=== PATIENT | female | born 1945 | race Caucasian/White ===

== ENCOUNTER 2016-12-20 05:53 | Inpatient (IN) | payer BC, OTHER ==
[2016-12-04 12:09] VITALS: BMI 43.0
--- NOTE | 2016-12-04 12:42 | PAT Medication Instructions ---
Service Date December 04, 2016. Current Home Medication List Albuterol (Proair Hfa), 2 PUFFS INH Q4H PRN for SOB/Wheezing Aspirin (Aspirin 81), 81 MG PO QAM Clobetasol Propionate (Clobetasol Propionate), 1 APPLN TOP BID PRN for PRN Fluticasone Prop/Salmeterol (Advair Diskus 500-50 Mcg/Dose), 2 PUFFS INH BID Ibuprofen (Advil), 400 MG PO PRN Losartan Potassium (Cozaar), 100 MG PO HS Zafirlukast (Zafirlukast), 20 MG PO BID Medication Instructions For Your Scheduled Surgery - Hold the following medications 24 hours prior to surgery: Clobetasol Propionate (Clobetasol Propionate), 1 APPLN TOP BID PRN for PRN Losartan Potassium (Cozaar), 100 MG PO HS - Hold the following medications the morning of surgery: Ibuprofen (Advil), 400 MG PO PRN (otherwise okay to continue per surgeon) - Take the following medications the morning of surgery with a sip of water OTHERWISE NOTHING TO EAT OR DRINK AFTER MIDNIGHT: Aspirin (Aspirin 81), 81 MG PO QAM (okay to continue per surgeon) Albuterol (Proair Hfa), 2 PUFFS INH Q4H PRN for SOB/Wheezing (use if needed; BRING TO HOSPITAL) Fluticasone Prop/Salmeterol (Advair Diskus 500-50 Mcg/Dose), 2 PUFFS INH BID Zafirlukast (Zafirlukast), 20 MG PO BID - Take the following medications as scheduled the night before surgery: Albuterol (Proair Hfa), 2 PUFFS INH Q4H PRN for SOB/Wheezing Fluticasone Prop/Salmeterol (Advair Diskus 500-50 Mcg/Dose), 2 PUFFS INH BID Zafirlukast (Zafirlukast), 20 MG PO BID Ibuprofen (Advil), 400 MG PO PRN If you have any questions please call us at [phone] or [phone] or [phone]
[2016-12-04 13:17] LABS: BASO % 0.6 %; BASO ABS # 0.04 K/uL (0-0.2); COMPLETE YES; EOS % 2.8 %; HEMATOCRIT 44.1 % (37-47); IG% 0.1 %; LYMPH % 30.4 %; LYMPH ABS # 2.09 K/uL (1.2-3.4); MEAN CELL VOLUME 91.3 fL (80-100); MEAN CORPUSCULAR HEMOGLOBIN 29.8 pg (25-34); MEAN CORPUSCULAR HGB CONC 32.7 g/dl (32-36); MEAN PLATELET VOLUME 9.7 fL (7.4-10.4); MONO % 6.6 %; NEUT % 59.5 %; PLATELET COUNT 291 K/uL (130-400); RED BLOOD COUNT 4.83 M/uL (4.2-5.4); WHITE BLOOD COUNT 6.87 K/uL (4.8-10.8)
[2016-12-04 13:24] LABS: URINE APPEARANCE CLEAR (CLEAR); URINE BILIRUBIN NEG (NEG); URINE COLOR YELLOW; URINE EPITHELIAL CELL AUTO >30 /lpf (0-5); URINE NITRITE NEG (NEG); URINE SPECIFIC GRAVITY 1.012 (1.000-1.030); UROBILINOGEN NEG (NEG)
--- NOTE | 2016-12-04 13:33 | DIAGNOSTIC IMAGING REPORT ---
TWO VIEW CHEST CLINICAL HISTORY: Preoperative examination. FINDINGS: PA and lateral chest radiographs are compared to study dated 06/20/2014. The PA view is degraded by patient rotation. The heart is top normal for projection and there is atherosclerotic calcification of the thoracic aorta. Pulmonary vasculature is noncongested. Chronic interstitial thickening and nodularity is similar to previous. Linear atelectasis is identified in the left midlung. No airspace consolidation is seen typical for pneumonia and there is no pleural effusion. There is no pneumothorax. The skeletal structures are osteopenic. Degenerative change and hyperkyphosis are seen in the thoracic spine. Fusion hardware is noted at the thoracolumbar junction. IMPRESSION: No active disease in the chest. Electronically signed by: Jose Garner M.D. 12/04/2016 1:32 PM Dictated Date/Time: 12/04/2016 1:30 PM
[2016-12-04 13:40] LABS: MANUAL MICROSCOPIC REQUIRED? NO; REVIEW REQ? NO
[2016-12-04 14:05] LABS: BUN/CREATININE RATIO 15.3 (10-20); CALCIUM 8.8 mg/dl (8.5-10.1); CREATININE 0.62 mg/dl (0.60-1.20); POTASSIUM 3.9 mmol/L (3.5-5.1)
[2016-12-20] VITALS (17 sets, daily range): BP systolic 109–138; BP diastolic 66–88; PULSE 68–88; TEMP 36.6–37; O2SAT 91–96; Ht 154.9 cm; Wt 103.1 kg
[~2016-12-20] VITALS: Ht 154.9 cm; Wt 103.1 kg
[~2016-12-20 05:53] MED LIST: ACCL20 PO; ADVIN50050 INH; ALBU1AER9 INH; ASPI-435 PO; CLBPO15 TOP; IBUP-1050 PO; LOSA100T65 PO
[2016-12-20] MEDS ORDERED: CEFAZOLIN 2000 MG/60 ML D5W 60 ML IV SCH (06:00)
[2016-12-20] MEDS ORDERED: LACTATED RINGER'S 1000ML 1,000 ML IV SCH (06:00)
[2016-12-20] MEDS ORDERED: MIDAZOLAM HCL 1 MG/ML 2ML VIAL ONE (06:36)
[2016-12-20] MEDS ORDERED: FENTANYL CITRATE INJ 50 MCG/1 ML 2 ML VIAL ONE ×5 (06:36→10:37)
[2016-12-20] MEDS ORDERED: SODIUM CHLORIDE 0.9% PF 50 ML VIAL ONE (06:54)
[2016-12-20] MEDS ORDERED: BACITRACIN 50000 UNIT VIAL ONE (06:54)
--- NOTE | 2016-12-20 07:28 | History & Physical Bridge Note ---
H&P Re-Evaluation Bridge Note: I have examined the patient, reviewed the History & Physical and in the interval since the performance of the History & Physical I have noted the following changes of clinical significance: No changes noted
--- NOTE | 2016-12-20 07:29 | History and Physical ---
History & Physical Date Dec 20, 2016. Chief Complaint neck and arm pain History of Present Illness The patient is a 71 year old female with complaints of Additional History Hepatic Disease: No Endocrine Disorder: No Kidney Disease: No Hypertension: No Heart Disease: No Bleeding Tendencies: No Infectious Diseases: No Allergies Coded Allergies: No Known Allergies (Unverified , 12/20/16) Home Medications Scheduled Aspirin (Aspirin 81), 81 MG PO QAM Fluticasone Prop/Salmeterol (Advair Diskus 500-50 Mcg/Dose), 2 PUFFS INH BID Ibuprofen (Advil), 400 MG PO PRN Losartan Potassium (Cozaar), 100 MG PO HS Zafirlukast (Zafirlukast), 20 MG PO BID Scheduled PRN Albuterol (Proair Hfa), 2 PUFFS INH Q4H PRN for SOB/Wheezing Clobetasol Propionate (Clobetasol Propionate), 1 APPLN TOP BID PRN for PRN Physical Examination Skin: warm/dry, no rash Eyes: normal inspection, EOMI, sclerae normal ENT: normal ENT inspection, pharynx normal Head: normocephalic, atraumatic Neck: supple, no adenopathy, trachea midline Respiratory/Chest: lungs clear, normal breath sounds, no respiratory distress Cardiovascular: regular rate, rhythm, no edema, no murmur Abdomen / GI: normal bowel sounds, non tender Back: normal inspection Extremities: normal inspection, normal range of motion Neurologic/Psych: no motor/sensory deficits, alert, normal reflexes, oriented x 3 Diagnosis cervical stenosis Plan of Treatment corpectomy C5 acdf C6-7
--- NOTE | 2016-12-20 07:55 | History & Physical Bridge Note ---
H&P Re-Evaluation Bridge Note: I have examined the patient, reviewed the History & Physical and in the interval since the performance of the History & Physical I have noted the following changes of clinical significance: No changes noted ACDF C3-4 corpectomy C5,6 fusion C3-7
--- NOTE | 2016-12-20 07:56 | History and Physical ---
History & Physical Date Dec 20, 2016. Chief Complaint arm and neck pain History of Present Illness The patient is a 71 year old female with complaints of Additional History Hepatic Disease: No Endocrine Disorder: No Kidney Disease: No Hypertension: No Heart Disease: No Bleeding Tendencies: No Infectious Diseases: No Allergies Coded Allergies: No Known Allergies (Unverified , 12/20/16) Home Medications Scheduled Aspirin (Aspirin 81), 81 MG PO QAM Fluticasone Prop/Salmeterol (Advair Diskus 500-50 Mcg/Dose), 2 PUFFS INH BID Ibuprofen (Advil), 400 MG PO PRN Losartan Potassium (Cozaar), 100 MG PO HS Zafirlukast (Zafirlukast), 20 MG PO BID Scheduled PRN Albuterol (Proair Hfa), 2 PUFFS INH Q4H PRN for SOB/Wheezing Clobetasol Propionate (Clobetasol Propionate), 1 APPLN TOP BID PRN for PRN Physical Examination Skin: warm/dry, no rash Eyes: normal inspection, EOMI, sclerae normal ENT: normal ENT inspection, pharynx normal Head: normocephalic, atraumatic Neck: supple, no adenopathy, trachea midline Respiratory/Chest: lungs clear, normal breath sounds, no respiratory distress Cardiovascular: regular rate, rhythm, no edema, no murmur Abdomen / GI: normal bowel sounds, non tender Back: normal inspection Extremities: normal inspection, normal range of motion Neurologic/Psych: no motor/sensory deficits, alert, normal reflexes, oriented x 3 Diagnosis cervical stenosis Plan of Treatment acdf c-4 corpectomy c5,c6 fuson c3-c7
[2016-12-20] MEDS ORDERED: EpHEDrine SULFATE INJ 50 MG/ML AMP IV PRN (08:00)
[2016-12-20] MEDS ORDERED: ATROPINE SULFATE 0.1 MG/ML 5ML SYR IV PRN (08:00)
[2016-12-20] MEDS ORDERED: ONDANSETRON INJ 2 MG/ML 2 ML VIAL IV PRN ×2 (08:00→10:45)
[2016-12-20] MEDS ORDERED: HYDROmorphone INJ 1 MG/ML SYR IV PRN (08:00)
[2016-12-20] MEDS ORDERED: PROMETHAZINE HCL INJ 6.25 MG in SODIUM CHLORIDE 0.9% 50ML 50 ML IV PRN (08:00)
[2016-12-20] MEDS ORDERED: HYDROmorphone INJ 2 MG/ML SYR/VIAL ONE ×2 (08:21→10:39)
[2016-12-20] MEDS ORDERED: ROCURONIUM BROMIDE 10 MG/ML 5 ML VIAL ONE (09:34)
[2016-12-20] MEDS ORDERED: PROPOFOL IV EMULSION 10 MG/ML 20 ML VIAL IV ONE (09:34)
[2016-12-20] MEDS ORDERED: EpHEDrine SULFATE 50MG/5ML SYR ONE (09:34)
[2016-12-20] MEDS ORDERED: HydrALAZINE HCL 20 MG/ML VIAL ONE (09:34)
[2016-12-20] MEDS ORDERED: LIDOCAINE HCL 2% 2 ML VIAL (20MG/ML) ONE (09:34)
[2016-12-20] MEDS ORDERED: DEXAMETHASONE SOD INJ 4 MG/ML VIAL ONE (09:34)
[2016-12-20] MEDS ORDERED: ONDANSETRON INJ 2 MG/ML 2 ML VIAL ONE ×2 (09:34→12:37)
[2016-12-20] MEDS ORDERED: FLOSEAL HEMOSTATIC MATRIX 5ML TOP ONE (10:29)
--- NOTE | 2016-12-20 10:34 | [facility] Operative Report ---
Operative Report Operative Date Dec 20, 2016. Pre-Operative Diagnosis cervical stenosis Post-Operative Diagnosis same Procedure(s) Performed decomp fusion Surgeon Dr. Van Ortega Information Writer Surgeon(s) Marshal Townsend PA-C Estimated Blood Loss 100ML Findings stenosis Specimens none per surgeon I attest to the content of the Intraoperative Record and any orders documented therein. Any exceptions are noted below.
[2016-12-20] MEDS ORDERED: DEXAMETHASONE INJ 8 MG in SYRINGE 0 ML IV PRN (10:45)
[2016-12-20] MEDS ORDERED: LORAZEPAM 0.5 MG TAB PO PRN (10:45)
[2016-12-20] MEDS ORDERED: NALOXONE HCL 0.4 MG/1 ML VIAL/CARP IV PRN (10:45)
[2016-12-20] MEDS ORDERED: ALBUTEROL HFA 8 GM INHALER INH PRN (10:45)
[2016-12-20] MEDS ORDERED: LORAZEPAM INJ 0.5 MG in SYRINGE 0.75 ML IV PRN (10:45)
[2016-12-20] MEDS ORDERED: DO NOT ADMINISTER FLU VACCINE PRN ×3 (10:45)
[2016-12-20] MEDS ORDERED: ACETAMINOPHEN IV 1,000 MG in EMPTY BAG 0 ML IV PRN (10:45)
[2016-12-20] MEDS ORDERED: DiphenhydrAMINE HCL 50 MG/ML VIAL IV PRN (10:45)
[2016-12-20] MEDS ORDERED: RACEPINEPHRINE 2.25% NEBU SOLN 0.5 ML VIAL INH PRN (10:45)
[2016-12-20] MEDS ORDERED: MAGNESIUM HYDROXIDE SUSP 30 ML UDC PO PRN (10:45)
[2016-12-20] MEDS ORDERED: DO NOT ADMINISTER PNEUMOCOCCAL VACCINE PRN ×2 (10:45)
--- NOTE | 2016-12-20 10:57 | DIAGNOSTIC IMAGING REPORT ---
INTRAOPERATIVE CERVICAL SPINE 4 VIEWS CLINICAL HISTORY: ACDF C4-7 COMPARISON STUDY: C5-6 corpectomy. C3-4 discectomy and fusion. FINDINGS: 412 fluoroscopic spot images are provided for interpretation. 14 fluoroscopic spot images are provided for interpretation. There are postsurgical changes of the C3-4 discectomy. There are postsurgical changes of a corpectomy at the C5 and C6 levels. There is an anterior metallic plate with screws the C3, C4, and C7 levels. IMPRESSION: Intraoperative radiographs as described above. Electronically signed by: Gigi Hui M.D. 12/20/2016 10:56 AM Dictated Date/Time: 12/20/2016 10:54 AM
[2016-12-20] MEDS ORDERED: NEOSTIGMINE METHYLSULFATE 1 MG/ML 10ML VIAL ONE ×2 (10:58→12:37)
[2016-12-20] MEDS ORDERED: ESMOLOL HCL 10 MG/ML 10 ML VIAL ONE ×2 (10:58→12:37)
[2016-12-20] MEDS ORDERED: GLYCOPYRROLATE INJ 0.2 MG/ML VIAL ONE ×2 (10:58→12:37)
[2016-12-20] MEDS ORDERED: NURSING VERBAL MED ORDER ONE ×2 (11:15→11:40)
[2016-12-20] MEDS ORDERED: IPRATROPIUM BROMIDE NEB SOLN 0.02% 2.5 ML VIAL INH SCH (11:30)
[2016-12-20] MEDS ORDERED: ALBUTEROL 0.5% NEB SOLN 2.5 MG/0.5 ML VIAL INH SCH (11:30)
[2016-12-20] MEDS: FENTANYL CITRATE INJ 50 MCG/1 ML 2 ML VIAL IV PRN ×4 (11:38→12:34)
[2016-12-20] MEDS ORDERED: ALBUTEROL 0.083% NEBU SOLN 3 ML VIAL INH ONE (12:00)
--- NOTE | 2016-12-20 12:16 | OPERATIVE REPORT ---
DATE OF OPERATION: 12/20/2016 PREOPERATIVE DIAGNOSIS: Cervical spondylosis with myeloradiculopathy. POSTOPERATIVE DIAGNOSIS: Same. PROCEDURE PERFORMED: 1. Anterior cervical corpectomy C5-C6. 2. Anterior cervical discectomy C3-C4. 3. Anterior cervical arthrodesis C3-C4 and C4-C7. 4. Placement of PEEK cage 8 mm in height at C3-C4 and 33 mm in height at C4-C7. 5. Application of Globus plate and screws from C3-C7. 6. Placement of locally harvested morcellized autograft combined with Ellie bone graft in interbody cages. SURGEON: Dr. Van Ortega. TECH WRITER: Due to the complex nature of the procedure, the entire surgery was performed with the carpenter assistant of HERNANDEZ Melgoza. The assistant infant teacher, under direct supervision, was involved in the actual performance of all aspects of the surgical procedure including hemostasis, tissue retraction and incision, instrument management, patient positioning, and wound closure. ANESTHESIA: General. DISPOSITION: The patient awakened and taken to PACU in stable condition. HISTORY OF PATIENT'S PROBLEMS: This is a 71-year-old female that presents with above-mentioned diagnosis. After failing an extensive course of nonoperative care, elected to undergo the above-mentioned procedure. Risks, benefits, pros, cons, and alternatives were outlined in detail preoperatively. PROCEDURE: The patient was met with preoperatively, case discussed and all questions were addressed. At that point the patient was taken back to operative suite and after undergoing successful general intubation by the department of anesthesia was placed in a supine position on Daryn table with head in Andrade head counselor. All bony prominences were well padded and the eyes were inspected to ensure there was no external pressure placed upon them. At this point the anterior cervical spine was prepped and draped in normal sterile fashion. At this point, an incision was placed along the right anterior aspect of the cervical spine, medial to the sternocleidomastoid muscle. Sharp dissection with the assistance of bipolar electrocautery was performed down to and exposing the anterior cervical spine from C3-C7. A self-retaining retractor was placed. I then performed a complete discectomy of C4-C5 out to the uncovertebral joints followed by C6-C7 out to the uncovertebral joints. Sunspot distracting pins were placed in C4 and C7 to distract across C5-C6. Complete corpectomy was then performed of both levels including removal of all posterior annular fibers, longitudinal ligament and bilateral foraminotomies performed. Endplates were then burred to subcortical bleeding bone and a 33 mm PEEK cage filled with Ellie bone grafting locally harvested morcellized autograft tapped into position. Distracting apparatus was removed and we proceeded to C3-C4. Again, I performed a complete discectomy out to the uncovertebral joints bilaterally, bilateral foraminotomies performed, endplates burred to subcortical bleeding bone and an 8 mm PEEK cage filled with Ellie bone grafting and allograft tapped into position. Distracting apparatus was removed. All anterior osteophytes burred to a smooth cortical surface and a Globus cervical plate applied with the assistance of fluoroscopy. Incision was then copiously irrigated, explored to ensure there was no damage to surrounding structures or remaining bleeding. A 10 round STU drain inserted then closed with 2-0 Vicryl in the fascia, 4-0 Monocryl for final skin closure. Steri-Strips and sterile dressing placed. The patient was awakened and taken to PACU in stable condition. I attest to the content of the Intraoperative Record and any orders documented therein. Any exception s are noted below.
--- NOTE | 2016-12-20 12:38 | DIAGNOSTIC IMAGING REPORT ---
CHEST ONE VIEW PORTABLE CLINICAL HISTORY: POST ACDF, WHEEZING, HYPOXIA COMPARISON STUDY: Chest radiograph December 04, 2016. FINDINGS: Anterior cervical spine fusion and lumbar spine fusion hardware is incidentally noted. There is no pneumothorax. No findings are noted to suggest pulmonary edema. Lung findings are diminished. Linear left basilar opacity suggestive atelectasis. There is moderate right basilar opacity which favors atelectasis. There may also be left lower lobe volume loss. IMPRESSION: 1. Diminished lung lungs. Bibasilar opacities with volume loss which favor atelectasis. Consolidation could appear similar. 2. No pneumothorax. Electronically signed by: Macario Deshpande M.D. 12/20/2016 12:37 PM Dictated Date/Time: 12/20/2016 12:32 PM
--- NOTE | 2016-12-20 12:51 | Anesthesiology Progress Note ---
Anesthesia Post Op Note Date & Time Dec 20, 2016 at 12:48 Vital Signs Pain Intensity: 5 Vital Signs Past 12 Hours Date Time Temp Pulse Resp B/P (MAP) Pulse Ox O2 Delivery O2 Flow Rate FiO2 12/20/16 12:35 82 19 120/57 92 Mask 8 12/20/16 12:25 85 17 111/69 92 Mask 8 12/20/16 12:15 80 14 113/61 92 Mask 8 12/20/16 12:05 72 15 108/57 94 Mask 8 12/20/16 12:04 77 15 93 Mask 9.0 12/20/16 11:55 80 22 116/59 92 Mask 8 12/20/16 11:45 74 20 120/61 92 Mask 8 12/20/16 11:35 84 22 119/57 92 Mask 10 12/20/16 11:25 86 19 129/63 92 Mask 13 12/20/16 11:24 88 28 92 Mask 12.0 12/20/16 11:15 85 17 124/56 92 Mask 13 12/20/16 11:05 84 20 117/66 90 Mask 13 12/20/16 10:58 36.2 89 16 182/100 90 Mask 13 12/20/16 06:47 37 71 18 138/78 95 Room Air Notes Mental Status: alert / awake / arousable, participated in evaluation Pt Amnestic to Procedure: Yes Nausea / Vomiting: adequately controlled Pain: adequately controlled Airway Patency, RR, SpO2: stable & adequate BP & HR: stable & adequate Hydration State: stable & adequate Anesthetic Complications: no major complications apparent Patient with expiratory weezing in recovery. Oxygen saturation 92-95% on facemask. Pain was well managed and she required 2 nebulizer treatments of albuterol which improved her subjective lung symptoms and weezing. She still had boarderline low oxygen saturation on FM and so a CXR was checked in recovery to rule out pneumothorax. Given that she appears to be improving and there is no PNX, we suspect that this is due to her existing lung disease, post operative atelectasis, and her morbid obesity. She is okay to continue her recovery on the floor with continuous pulse oxymetry.
[2016-12-20] MEDS: SODIUM CHLORIDE 0.9% 1000ML 1,000 ML IV SCH (13:30)
[2016-12-20] MEDS ORDERED: ACETAMINOPHEN IV 100 ML IV PRN (14:00)
[2016-12-20] MEDS: OXYCODONE HCL IR 5 MG TAB (IMMEDIATE RELEASE) PO PRN (14:01)
[2016-12-20] MEDS: CEFAZOLIN IV 2,000 MG in DEXTROSE 5% 50ML 50 ML IV SCH (15:52)
[2016-12-20] MEDS: HYDROmorphone INJ 0.5 MG/0.5 ML SYR IV PRN (15:52)
[2016-12-20] MEDS: SCOPOLAMINE 1.5 MG TDSY TD SCH (16:09)
[2016-12-20] MEDS: CHECK SCOPOLAMINE PATCH PLACEMENT SCH (16:10)
[2016-12-20] MEDS: HYDROmorphone INJ 1 MG/ML SYR IV PRN (19:30)
[2016-12-20] MEDS: DEXAMETHASONE INJ 6 MG in SYRINGE 0 ML IV SCH (21:48)
[2016-12-20] MEDS: FLUTICASONE/SALMETEROL (ADVAIR) 500/50 INH 14 PUFF INH SCH (21:50)
[2016-12-20] MEDS: LOSARTAN POTASSIUM 50 MG TAB PO SCH (21:51)
[2016-12-20] MEDS: DOCUSATE SODIUM 100 MG CAP PO SCH (21:51)
[2016-12-21] VITALS (23 sets, daily range): BP systolic 110–131; BP diastolic 58–78; PULSE 58–87; TEMP 36.6–37.2; O2SAT 89–97
[2016-12-21] MEDS: CHECK SCOPOLAMINE PATCH PLACEMENT SCH ×4 (00:06→23:33)
[2016-12-21] MEDS: CEFAZOLIN IV 2,000 MG in DEXTROSE 5% 50ML 50 ML IV SCH ×2 (00:06→08:03)
[2016-12-21] MEDS: SODIUM CHLORIDE 0.9% 1000ML 1,000 ML IV SCH (02:39)
[2016-12-21] MEDS: HYDROmorphone INJ 0.5 MG/0.5 ML SYR IV PRN (04:25)
[2016-12-21] MEDS: DEXAMETHASONE INJ 6 MG in SYRINGE 0 ML IV SCH ×2 (06:11→14:00)
[2016-12-21] MEDS ORDERED: NURSING VERBAL MED ORDER ONE ×2 (08:30→20:00)
[2016-12-21] MEDS: FLUTICASONE/SALMETEROL (ADVAIR) 500/50 INH 14 PUFF INH SCH ×2 (08:48→21:09)
[2016-12-21] MEDS: OXYCODONE HCL IR 5 MG TAB (IMMEDIATE RELEASE) PO PRN (08:48)
[2016-12-21] MEDS: ASPIRIN 81 MG ECTAB PO SCH (08:49)
[2016-12-21] MEDS: DOCUSATE SODIUM 100 MG CAP PO SCH ×2 (08:49→21:09)
[2016-12-21] MEDS ORDERED: COUGH DROP (SUGAR FREE) LOZ 24 LOZ/1 BOX ONE (10:46)
[2016-12-21] MEDS ORDERED: NURSING DECISION MEDICATION ORDER SCH (11:00)
--- NOTE | 2016-12-21 11:04 | PROGRESS NOTE ---
DATE: 12/21/2016 Postop day 1. She is complaining of some neck pain, sore throat, swallowing liquids well. No hoarseness. Vital signs stable. T-max 37.2. STU drained 25 mL; however, the drain did slip out this a.m. PHYSICAL EXAMINATION: She is in chair at bedside. Has excellent strength to testing. Dressing is in place. ASSESSMENT: Status post anterior decompression and fusion. PLAN: At this time, we will maintain liquid diet today. We will make her n.p.o. after midnight Friday night, plan for posterior decompression and fusion on Friday.
[2016-12-21] MEDS ORDERED: COUGH DROP (SUGAR FREE) LOZ 24 LOZ/1 BOX PO PRN (11:15)
[2016-12-21] MEDS ORDERED: DEXAMETHASONE INJ 10 MG in SYRINGE 0 ML IV SCH (20:30)
[2016-12-21] MEDS: ALBUTEROL 0.083% NEBU SOLN 3 ML VIAL INH PRN (20:45)
[2016-12-21] MEDS: LOSARTAN POTASSIUM 50 MG TAB PO SCH (21:09)
[2016-12-22] VITALS (17 sets, daily range): BP systolic 119–147; BP diastolic 62–85; PULSE 65–84; TEMP 36.6–37.1; O2SAT 91–95
[2016-12-22] MEDS ORDERED: BISACODYL 10 MG SUPP PR PRN (06:00)
[2016-12-22] MEDS ORDERED: BISACODYL 5 MG TABEC PO PRN (06:00)
[2016-12-22] MEDS: CHECK SCOPOLAMINE PATCH PLACEMENT SCH ×2 (08:00→16:00)
[2016-12-22] MEDS: ASPIRIN 81 MG ECTAB PO SCH (08:39)
[2016-12-22] MEDS: FLUTICASONE/SALMETEROL (ADVAIR) 500/50 INH 14 PUFF INH SCH ×2 (08:39→20:38)
[2016-12-22] MEDS: POLYETHYLENE (MIRALAX) 17 GM PACK PO SCH (08:39)
[2016-12-22] MEDS: DOCUSATE SODIUM 100 MG CAP PO SCH ×2 (08:39→20:38)
--- NOTE | 2016-12-22 11:00 | SURGERY PROGRESS NOTE ---
DATE: 12/22/2016 SUBJECTIVE: Ms. Fischer is here postop day #2 status post anterior cervical fracture with ACDF and fusion from C3-C7. She has had some issues with her lungs, where if she lies down in bed, she is hypoxic and wheezes. She spent the night upright in her chair. She did not get much rest, otherwise though she is doing fine. She is not having too much in the way of pain. The numbness and tingling in the arms and hands seems to be somewhat improved. She is able to move all of her extremities without difficulties and is tolerating her collar well. She is on clear liquid diet and our plan is to bring her back to surgery tomorrow for posterior cervical fusion, and decompression. She has no other complaints of numbness, tingling or paresthesias. PHYSICAL EXAMINATION: VITAL SIGNS: She is afebrile. All vital signs are stable. Neck: Collar is in place and is well-fitting. Dressing is clean, dry, and intact. Strength and sensation are grossly intact. ABDOMEN: Soft, nontender. EXTREMITIES: Calves are supple and nontender. ASSESSMENT: The patient is stable postoperative day #2. PLAN: At this point, the patient is improving. Our plan is to bring her back to the operating room tomorrow morning if her lungs are clear and can tolerate it, we will perform a right posterior cervical decompression and fusion. She has been made n.p.o. after midnight today. I will see her tomorrow for surgery.
[2016-12-22] MEDS: ALBUTEROL 0.083% NEBU SOLN 3 ML VIAL INH PRN ×2 (11:49→19:56)
--- NOTE | 2016-12-22 14:42 | Progress Note ---
Progress Note Date of Service Dec 22, 2016. Progress Note Patient is 71 year old F POD#2 from a multilevel ACDF, still having pain and now scheduled for Posterior cervical fusion C3-T2. The patient has existing COPD/Asthma, but reports her home symptoms as relatively mild. On presentation to Same Day Surgery on Friday, her O2 saturation was 95% on room air. Her operative course was uneventful but she did have some dyspnea in the recovery room and audible weezing which was treated with aggressive nebulizers and oxygen therapy and the patient did improve. A CXR was also done at that time to rule out the possibility of a PNX caused by the surgery and this showed an expected amount of atelectasis for a patient of her age, duration of surgery, and body habitus. Now 2 days post op, the patient is still more dyspneic than would be expected. She is wearing a cervical collar. She requires 4L NC to keep her oxygen saturations 92-94% and per the nurse she drops fo 84-87% off O2. On exam, she has scattered weezing, and may have some ronchi in the R base. She is afebrile. I spoke with the patient and discussed the need to rule out a developing pneumonia before attributing all of her dyspnea to the c-collar and her existing lung disease. I have ordered a CXR, CBC, and BMP. Her suitability for surgery tomorrow will depend on the outcome of these investigations. She is probably at least moderate risk for post op respiratory failure due to her current pulmonary status. The primary team may want to consider obtaining a medicine consult pre or post op to assist in management of her pulmonary status on the floor. Consent was obtained and placed in the chart.
[2016-12-22 14:48] LABS: BASO % 0.1 %; BASO ABS # 0.01 K/uL (0-0.2); EOS % 0.1 %; HEMATOCRIT 43.1 % (37-47); IG% 0.2 %; LYMPH % 21.2 %; LYMPH ABS # 2.78 K/uL (1.2-3.4); MEAN CELL VOLUME 89.8 fL (80-100); MEAN CORPUSCULAR HEMOGLOBIN 30.8 pg (25-34); MEAN PLATELET VOLUME 9.8 fL (7.4-10.4); MONO % 11.4 %; PLATELET COUNT 286 K/uL (130-400); WHITE BLOOD COUNT 13.14 K/uL (4.8-10.8)
[2016-12-22 14:52] LABS: COMPLETE YES; MEAN CORPUSCULAR HGB CONC 34.3 g/dl (32-36)
--- NOTE | 2016-12-22 14:54 | DIAGNOSTIC IMAGING REPORT ---
CHEST ONE VIEW PORTABLE HISTORY: dyspnea COMPARISON: Chest 12/20/2016. FINDINGS: Cervical spinal fusion hardware is again noted. No pneumothorax. Trace bilateral pleural effusions. Bibasilar linear densities favor subsegmental atelectasis. There is lumbar spinal fusion hardware. The heart is stable in size. Mild diffuse interstitial thickening which may be chronic. This is unchanged. IMPRESSION: 1. Improved aeration within the bibasilar linear densities suggesting resolving atelectasis. 2. Suspect trace bilateral pleural effusions. Electronically signed by: Mckinley Lopez M.D. 12/22/2016 2:53 PM Dictated Date/Time: 12/22/2016 2:52 PM
[2016-12-22 15:09] LABS: BUN/CREATININE RATIO 19.1 (10-20); CALCIUM 8.4 mg/dl (8.5-10.1); CREATININE 0.67 mg/dl (0.60-1.20); POTASSIUM 3.5 mmol/L (3.5-5.1)
[2016-12-22] MEDS: LOSARTAN POTASSIUM 50 MG TAB PO SCH (20:37)
[2016-12-23] VITALS (38 sets, daily range): BP systolic 121–162; BP diastolic 68–112; PULSE 58–92; TEMP 36.5–37; O2SAT 91–98
[2016-12-23] MEDS: CHECK SCOPOLAMINE PATCH PLACEMENT SCH ×4 (00:22→23:16)
[2016-12-23] MEDS ORDERED: FENTANYL CITRATE INJ 50 MCG/1 ML 2 ML VIAL ONE ×5 (06:33→10:42)
[2016-12-23] MEDS ORDERED: MIDAZOLAM HCL 1 MG/ML 2ML VIAL ONE (06:33)
[2016-12-23] MEDS ORDERED: ALBUT/IPRATROP 3MG/0.5MG NEB 3 ML VIAL ONE ×2 (06:47→10:51)
[2016-12-23] MEDS ORDERED: BACITRACIN 50000 UNIT VIAL ONE (06:55)
[2016-12-23] MEDS ORDERED: BUPIVACAINE/EPINEPHRINE 0.5% MPF 1:200,000 30 ML VIAL ONE (06:55)
[2016-12-23] MEDS ORDERED: SODIUM CHLORIDE 0.9% PF 50 ML VIAL ONE (06:55)
--- NOTE | 2016-12-23 07:24 | History & Physical Bridge Note ---
H&P Re-Evaluation Bridge Note: I have examined the patient, reviewed the History & Physical and in the interval since the performance of the History & Physical I have noted the following changes of clinical significance: No changes noted posterior cervical decompression fusionC3-T2
[2016-12-23] MEDS ORDERED: CEFAZOLIN IV 2,000 MG/60 ML D5W IV ONE (07:29)
--- NOTE | 2016-12-23 07:31 | Anesthesiology Progress Note ---
Anesthesia Post Op Note Date & Time Dec 23, 2016 at 07:29 Vital Signs Pain Intensity: 0.0 Vital Signs Past 12 Hours Date Time Temp Pulse Resp B/P (MAP) Pulse Ox O2 Delivery O2 Flow Rate FiO2 12/23/16 07:11 36.8 16 162/84 94 Nasal Cannula 4.0 12/23/16 06:48 36.8 73 16 162/84 (110) 94 Nasal Cannula 4.0 12/23/16 03:29 36.7 67 16 140/91 95 Nasal Cannula 4.0 Humidified Oxygen 12/23/16 03:20 58 14 94 Nasal Cannula 4.0 12/22/16 23:45 68 14 94 Nasal Cannula 4.0 12/22/16 23:25 Nasal Cannula 4.0 Humidified Oxygen 12/22/16 23:25 36.9 73 16 121/62 93 Nasal Cannula 4.0 Humidified Oxygen 12/22/16 20:38 125/75 (92) 12/22/16 20:00 Room Air 12/22/16 19:58 80 16 92 Nasal Cannula 3.5 12/22/16 19:57 80 12 92 Nasal Cannula 3.5 Notes Pt Amnestic to Procedure: Yes Airway Patency, RR, SpO2: stable & adequate BP & HR: stable & adequate Pt off floor. VSS per documentation.
[2016-12-23] MEDS ORDERED: ONDANSETRON INJ 2 MG/ML 2 ML VIAL IV PRN (07:45)
[2016-12-23] MEDS ORDERED: ALBUT/IPRATROP 3MG/0.5MG NEB 3 ML VIAL INH ONE (07:45)
[2016-12-23] MEDS ORDERED: ATROPINE SULFATE 0.1 MG/ML 5ML SYR IV PRN (07:45)
[2016-12-23] MEDS ORDERED: FENTANYL CITRATE INJ 50 MCG/1 ML 2 ML VIAL IV PRN (07:45)
[2016-12-23] MEDS ORDERED: EpHEDrine SULFATE INJ 50 MG/ML AMP IV PRN (07:45)
[2016-12-23] MEDS ORDERED: HYDROmorphone INJ 2 MG/ML SYR/VIAL ONE ×2 (08:06→10:23)
[2016-12-23] MEDS: ALBUTEROL 0.083% NEBU SOLN 3 ML VIAL INH PRN (09:03)
[2016-12-23] MEDS ORDERED: FLOSEAL HEMOSTATIC MATRIX 10ML TOP ONE (10:02)
--- NOTE | 2016-12-23 10:10 | [facility] Post Operative Brief Note ---
Immediate Operative Summary Operative Date Dec 23, 2016. Pre-Operative Diagnosis cervical stenosis Post-Operative Diagnosis cervical stenosis Procedure(s) Performed C3-T2 Posterior Cervical Fusion with Bone Morphogentic Protein Surgeon Dr. Van Ortega Gambling Supervisor Surgeon(s) Radha Tellez PA-C Estimated Blood Loss 100ML Findings stenosis Specimens none per surgeon
--- NOTE | 2016-12-23 10:50 | DIAGNOSTIC IMAGING REPORT ---
Cervical spine CERVICAL 2 OR 3 VIEWS CLINICAL HISTORY: C3-T12 POSTERIOR CERVICAL FUSION cervical fusion TECHNIQUE: Image intensifier COMPARISON STUDY: None FINDINGS: Findings consistent with utilization of the image intensifier for posterior as well as anterior cervical fusion IMPRESSION: Image intensifier usage for cervical fusion Electronically signed by: Cristopher Jackson M.D. 12/23/2016 10:48 AM Dictated Date/Time: 12/23/2016 10:48 AM
[2016-12-23] MEDS ORDERED: NURSING VERBAL MED ORDER ONE (11:30)
[2016-12-23] MEDS ORDERED: ALBUTEROL 0.083% NEBU SOLN 3 ML VIAL INH ONE (11:45)
--- NOTE | 2016-12-23 12:19 | Anesthesiology Progress Note ---
Anesthesia Post Op Note Date & Time Dec 23, 2016 at 11:43 Vital Signs Pain Intensity: 0.0 Vital Signs Past 12 Hours Date Time Temp Pulse Resp B/P (MAP) Pulse Ox O2 Delivery O2 Flow Rate FiO2 12/23/16 07:11 36.8 16 162/84 94 Nasal Cannula 4.0 12/23/16 07:10 64 16 93 Nasal Cannula 4.0 12/23/16 06:48 36.8 73 16 162/84 (110) 94 Nasal Cannula 4.0 12/23/16 03:29 36.7 67 16 140/91 95 Nasal Cannula 4.0 Humidified Oxygen 12/23/16 03:20 58 14 94 Nasal Cannula 4.0 12/22/16 23:45 68 14 94 Nasal Cannula 4.0 Notes Mental Status: alert / awake / arousable, participated in evaluation Pt Amnestic to Procedure: Yes Nausea / Vomiting: adequately controlled Pain: adequately controlled Airway Patency, RR, SpO2: stable & adequate BP & HR: stable & adequate Hydration State: stable & adequate Anesthetic Complications: no major complications apparent The patient is a 71 y/o female with a h/o COPD, +tob, HTN, DMII and morbid obesity s/p C3-T2 posterior fusion with Dr. Ortega today and POD # 3 from C3-T2 anterior fusion. Prior to the patient's anterior fusion on Friday she was saturating 95% on RA. She stated she did not require home 02. Postoperatively , she required 9-10L 02 FM to maintain her oxygen saturations 92-95%. She required an Albuterol treatment as well for wheezing. She was transferred to the floor on continuous pulse oximetry. Over the weekend her oxygenation slowly improved. She stated, however, that she was more dyspneic than she was at home. A CXR showed some atelectasis but no significant effusions or consolidation and she remained afebrile. The patient's hypoxia was felt to be due to a combination of her chronic lung disease, body habitus and post op atelectasis. She was not ambulating much while on the floor and was unable to use an incentive spirometer due the nature of her surgery. This morning, the patient's oxygen saturation had improved to 95% on 4L nc. She did have wheezing throughout her lung palma which improved with a Duoneb. Preoperatively, I discussed the patient's respiratory status with Dr. Ortega. He agreed that the patient was at increased risk for postoperative respiratory failure and may require prolonged postop roll forming machine set up mechanic ventilation. He stated, however, that the patient required the surgery to stabilize her and allow her to be more ambulatory which would improve her respiratory function. The patient was also informed of this and agreed to proceed. Intraoperatively, the patient did well. She was saturating 98% on Fi02 1.0 throughout the case. She was extubated at the end of the procedure. Initially, her oxygen saturating was ranging 88-90% on 10 L FM. She was given a Duoneb treatment prior to extubation and immediately after extubation. Her oxygen saturations slowly began to improve as she became more awake and was able to cough and take deep breaths. In recovery, she continued to have some wheezing. She did receive an albuterol nebulizer. We attempted to place her on BIPAP but she became combative when the mask was placed on her. Dr. Ortega is ok with her having BIPAP and incentive spirometry as needed. The patient will be transferred to the ICU for closer monitoring given her respiratory status as well as the nature of her procedure. She currently does not show any signs of hematoma. A full report was given to Jose Bowman who will be following the patient in the ICU. The patient was saturating 94% on 10L FM prior to transfer.
[2016-12-23] MEDS ORDERED: GLYCOPYRROLATE INJ 0.2 MG/ML VIAL ONE (12:30)
[2016-12-23] MEDS ORDERED: DEXAMETHASONE SOD INJ 4 MG/ML VIAL ONE (12:30)
[2016-12-23] MEDS ORDERED: ROCURONIUM BROMIDE 10 MG/ML 5 ML VIAL ONE (12:30)
[2016-12-23] MEDS ORDERED: PROPOFOL IV EMULSION 10 MG/ML 20 ML VIAL IV ONE (12:30)
[2016-12-23] MEDS ORDERED: ONDANSETRON INJ 2 MG/ML 2 ML VIAL ONE (12:30)
[2016-12-23] MEDS ORDERED: NEOSTIGMINE METHYLSULFATE 1 MG/ML 10ML VIAL ONE (12:30)
[2016-12-23] MEDS ORDERED: LIDOCAINE HCL 2% 2 ML VIAL (20MG/ML) ONE (12:30)
[2016-12-23] MEDS ORDERED: METOPROLOL TARTRATE 1 MG/ML VIAL ONE (12:30)
[2016-12-23] MEDS ORDERED: BENZONATATE 100MG CAP PO PRN (12:45)
--- NOTE | 2016-12-23 12:55 | Clinical Documentation Query ---
CLINICAL DOCUMENTATION QUERY Dr. MONIQUE, In your clinical opinion does this patient have: ( ) Morbid obesity with BMI of 42.9 ( ) Other explanation of clinical findings (Please Explain) ( ) Unable to determine (Please Define) ( ) Need to Discuss ( ) Not Agree BMI: A significantly high (>40) BMI will impact the severity of illness and risk of mortality of your patient. However, the physician must document a correlating diagnosis in the medical record. Please clarify and document your clinical opinion in the progress notes and discharge summary. Terms such as "probable", "suspected", "likely", "questionable", "possible", or "still to be ruled out" are acceptable. IF IN AGREEMENT, YOU MUST DOCUMENT ABOVE DIAGNOSTIC STATEMENT IN DAILY PROGRESS NOTES AND DISCHARGE SUMMARY. This document is not part of the patient's record. Thank You, Joanne Alvarez RN [phone]
[2016-12-23] MEDS: HYDROmorphone INJ 1 MG/ML SYR IV PRN ×3 (12:56→23:30)
--- NOTE | 2016-12-23 12:58 | DIAGNOSTIC IMAGING REPORT ---
CHEST ONE VIEW PORTABLE HISTORY: Hypoxia, increased cough COMPARISON: Chest 12/22/2016. FINDINGS: There is a new right lower lobe airspace opacity. There are low lung volumes. The heart is stable in size. No pneumothorax. No pleural effusions. No evidence for pulmonary edema. IMPRESSION: A new right lower lobe airspace opacity. This favors a pneumonia possibly secondary to aspiration. Electronically signed by: Mckinley Lopez M.D. 12/23/2016 12:57 PM Dictated Date/Time: 12/23/2016 12:53 PM
--- NOTE | 2016-12-23 13:19 | Clinical Documentation Query ---
CLINICAL DOCUMENTATION QUERY Dr. LOPEZ, In your clinical opinion is this patient being managed for: ( ) Acute pulmonary insufficiency ( ) Other explanation of clinical findings (Please Explain) ( ) Unable to determine (Please Define) ( ) Need to Discuss ( ) Not Agree The medical record reflects the following clinical findings, treatment, and risk factors. Clinical Indicators: 71 yo female presenting for anterior and posterior cervical fusions. Pt with hypoxia following initial anterior fusion and again following posterior fusion. Initially following extubation, pt with O2 sat of 89-90% on 10L FM. Pt continues to have some wheezing. Treatment: O2 support, duoneb treatments, attempt to place BIPAP caused combativeness, incentive spirometry, transfer to ICU, evaluation specialist consult, Risk Factors: morbid obesity, COPD, + tobacco use Please clarify and document your clinical opinion in the progress notes and discharge summary. Terms such as "probable", "suspected", "likely", "questionable", "possible", or "still to be ruled out" are acceptable. IF IN AGREEMENT, YOU MUST DOCUMENT ABOVE DIAGNOSTIC STATEMENT IN DAILY PROGRESS NOTES AND DISCHARGE SUMMARY. This document is not part of the patient's record. Thank You, Joanne Alvarez, HAILEY [phone]
--- NOTE | 2016-12-23 13:21 | Clinical Documentation Query ---
CLINICAL DOCUMENTATION QUERY Dr. RAMOS, In your clinical opinion is this patient being managed for: ( ) Acute pulmonary insufficiency (X ) Other explanation of clinical findings (Please Explain) ( ) Unable to determine (Please Define) ( ) Need to Discuss ( ) Not Agree The medical record reflects the following clinical findings, treatment, and risk factors. Clinical Indicators: 71 yo female presenting for anterior and posterior cervical fusions. Pt with hypoxia following initial anterior fusion and again following posterior fusion. Initially following extubation, pt with O2 sat of 89-90% on 10L FM. Pt continues to have some wheezing. 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 Terms such as "probable", "suspected", "likely", "questionable", "possible", or "still to be ruled out" are acceptable. IF IN AGREEMENT, YOU MUST DOCUMENT ABOVE DIAGNOSTIC STATEMENT IN DAILY PROGRESS NOTES AND DISCHARGE SUMMARY. This document is not part of the patient's record. Thank You, Joanne Alvarez, RN [phone]
--- NOTE | 2016-12-23 13:55 | OPERATIVE REPORT ---
DATE OF OPERATION: 12/23/2016 PREOPERATIVE DIAGNOSIS: Cervical spinal stenosis with myeloradiculopathy. POSTOPERATIVE DIAGNOSIS: Same. PROCEDURES PERFORMED: 1. Posterior cervical decompression C4, C5 and C6. 2. Posterior cervical spinal fusion C3-T2. 3. Placement posterior segmental instrumentation using Globus screws and rods C3-T2. 4. Placement of Infuse collagen sponge combined with Mastergraft in the posterior gutters and lateral masses at C3-T2. SURGEON: Dr. Van Ortega. OUTPATIENT PHARMACY MANAGER: Radha Tellez PA-C. Due to the complex nature of the procedure, the entire surgery was performed with the information technology assistant of [employer]NA[employer]. The assistant professor of biology, under direct supervision, was involved in the actual performance of all aspects of the surgical procedure including hemostasis, tissue retraction and incision, instrument management, patient positioning, and wound closure. ANESTHESIA: General. DISPOSITION: The patient awakened and taken to PACU in stable condition. HISTORY OF PATIENT'S PROBLEMS: This is a 71-year-old female status post anterior decompression and fusion that we are now planning the posterior component. Risks, benefits, pros, cons, and alternatives were outlined in detail. Risks and benefits were reviewed preoperatively. All questions were answered. DESCRIPTION OF PROCEDURE: At that point, the patient was taken back to the operative suite and after undergoing successful general intubation by the department of anesthesia was placed in the prone position on Daryn table with chest pad, hip bolster and a 3-prong Andrade wellhead pumper. Posterior cervicothoracic junction was then prepped and draped in normal sterile fashion. Sharp dissection with the assistance of Bovie cautery was performed down to and exposing the lamina, lateral masses, and transverse processes of C3, C4, C5, C6, C7, T1 and T2. We then removed the lamina in there entirety of C6, C5 and C4 to decompress the canal. After this was complete, lateral mass screws were placed in C3, C4, C5, C6, T1 and T2 pedicle screws bilaterally with assistance of fluoroscopy and appropriate sized suad cut, contoured and locked in position bilaterally. The lateral masses and lamina of C3, C4, C5, C6, C7, T1, T2 and T3 were then burred to subcortical bleeding bone. Infuse collagen sponge combined with Mastergraft was placed in the lateral masses along the lamina of the upper thoracic spine. A 7 flat STU drain was then inserted and incision was then closed with #1 Vicryl in the fascia, 2-0 Vicryl subcutaneously, 4-0 Monocryl for final skin closure. Steri-Strips and sterile dressing placed. The patient was awakened and taken to PACU. I attest to the content of the Intraoperative Record and any orders documented therein. Any exception s are noted below.
[2016-12-23] MEDS: DOCUSATE SODIUM 100 MG CAP PO SCH ×2 (14:23→20:06)
[2016-12-23] MEDS: ASPIRIN 81 MG ECTAB PO SCH (14:23)
[2016-12-23] MEDS: POLYETHYLENE (MIRALAX) 17 GM PACK PO SCH (14:23)
[2016-12-23] MEDS: FLUTICASONE/SALMETEROL (ADVAIR) 500/50 INH 14 PUFF INH SCH ×2 (14:24→20:05)
[2016-12-23] MEDS: SCOPOLAMINE 1.5 MG TDSY TD SCH (14:47)
[2016-12-23] MEDS ORDERED: PIPERACILL/TAZOBAC CONSULT ACTIVE PRN (16:00)
[2016-12-23] MEDS ORDERED: VANCOMYCIN CONSULT ACTIVE PRN (16:00)
[2016-12-23] MEDS ORDERED: VANCOMYCIN INJ 2,600 MG in SODIUM CHLORIDE 0.9% 500ML 500 ML IV SCH (16:15)
[2016-12-23] MEDS ORDERED: PIPERACILL/TAZOBAC IV 4.5 GM in DEXTROSE 5% 100ML IV ONE (16:15)
--- NOTE | 2016-12-23 16:15 | Critical Care Consultation ---
Critical Care Consultation Date of Consultation: Dec 23, 2016. Attending Physician: Van Ortega D.O. Reason for Consultation: acute hypoxic resp fail History of Present Illness This is a 71 yo f with a h/o COPD/ Asthma and HTN that is presenting to us after having difficulty with oxygenation post operatively today. The patient had planned to undergo surgery for spinal stenosis in the cervical region. The surgery was planned to be completed on two separate days. The original anterior cervical fusion was completed on Dec 202016. She tolerated the procedure well however on POD2 was suffering from some mild hypoxia and dyspnea with laying down. The anesthesiologist was concerned for a developing pna so CXR and labs were ordered and were WNL aside from a mildly elevated WBC. The posterior fusion of the cervical spine was completed today and during extubation she required a duoneb treatment for wheezing and continued to only oxygenate to 88- 90% on 10 L of oxygen. As the patient is at high risk for respiratory failure it was decided she would be sent to ICU for further care. During the interview the patient is sitting upright in the bed. She is c/o of back pain in the cervical region however it is "only a mild ache". Denies any cough or SOB however does have O2 per NC currently. She denies any N&V. She has a history of COPD and HTN. When asked about the DMII she says she is only "borderline" and not currently on any medications. Past Medical/Surgical History HTN Lumbar Fusion Borderline DMII HTN Family History No significant family history Social History Smoking Status: Current Every Day Smoker Smokeless Tobacco Use: No Alcohol Use: none Drug Use: none Marital Status: Housing Status: lives with family Occupation Status: retired Allergies Coded Allergies: No Known Allergies (Unverified , 12/20/16) Home Medications Scheduled Aspirin (Aspirin 81), 81 MG PO QAM Fluticasone Prop/Salmeterol (Advair Diskus 500-50 Mcg/Dose), 2 PUFFS INH BID Ibuprofen (Advil), 400 MG PO PRN Losartan Potassium (Cozaar), 100 MG PO HS Zafirlukast (Zafirlukast), 20 MG PO BID Scheduled PRN Albuterol (Proair Hfa), 2 PUFFS INH Q4H PRN for SOB/Wheezing Clobetasol Propionate (Clobetasol Propionate), 1 APPLN TOP BID PRN for PRN Current Inpatient Medications Current Inpatient Medications Medications (Trade) Dose Ordered Sig/Ratna Route Start Time Stop Time Status Last Admin Dose Admin Racepinephrine (Raccemic Epinephrine 2.25% 0.5ML Neb) 0.5 ml ONE PRN INH 12/20/16 10:45 Hydromorphone HCl (Dilaudid Inj) 0.5 mg Q3H PRN IV 12/20/16 10:45 01/03/17 10:44 12/21/16 04:25 0.5 MG Magnesium Hydroxide (Milk Of Magnesia Susp) 30 ml DAILY PRN PO 12/20/16 10:45 01/19/17 10:44 Docusate Sodium (coLACE CAP) 100 mg BID PO 12/20/16 21:00 01/19/17 20:59 12/23/16 14:23 100 MG Ondansetron HCl (Zofran Inj) 4 mg Q6 PRN IV 12/20/16 10:45 01/19/17 10:44 Scopolamine (Transderm-Scop Patch) 1.5 mg Q72H TD 12/20/16 15:00 01/19/17 14:59 12/23/16 14:47 1.5 MG Lorazepam (Ativan Tab) 0.5 mg Q8H PRN PO 12/20/16 10:45 01/19/17 10:44 Lorazepam 0.5 mg/ Syringe 1 ml @ 1 mls/min Q8H PRN IV 12/20/16 10:45 01/19/17 10:44 Diphenhydramine HCl (Benadryl Inj) 25 mg Q6H PRN IV 12/20/16 10:45 01/19/17 10:44 Pneumococcal Polysaccharide Vaccine 1 ea PRN PRN N/A 12/20/16 10:45 01/19/17 10:44 Influenza Virus Vacc Triv Types A&B 1 ea PRN PRN N/A 12/20/16 10:45 01/19/17 10:44 Oxycodone HCl (Roxicodone Immediate Rel Tab) 5mg for pain scale 4-6 1... Q4H PRN PO 12/20/16 10:45 01/03/17 10:44 12/21/16 08:48 10 MG Polyethylene (Miralax Powder Packet) 17 gm DAILY PO 12/22/16 09:00 01/21/17 08:59 12/23/16 14:23 17 GM Bisacodyl (Dulcolax Tab) 5 mg DAILY PRN PO 12/22/16 06:00 01/21/17 05:59 Bisacodyl (Dulcolax Supp) 10 mg DAILY PRN HI 12/22/16 06:00 01/21/17 05:59 Dexamethasone Sodium Phosphate 8 mg/Syringe 2 ml @ 1 mls/min ONE PRN IV 12/20/16 10:45 Naloxone HCl (Narcan Inj) 0.1 mg Q5M PRN IV 12/20/16 10:45 01/19/17 10:44 Miscellaneous (Remove Transderm-Scop Patch) 1 ea Q72H N/A 12/23/16 10:45 01/22/17 10:44 12/23/16 12:30 1 EA Miscellaneous Information (Check Scopolamine Patch Placement) 1 ea QS N/A 12/20/16 16:00 01/19/17 15:59 12/23/16 00:22 1 EA Aspirin (Ecotrin Tab) 81 mg QAM PO 12/21/16 09:00 01/20/17 08:59 12/23/16 14:23 81 MG Losartan Potassium (coZAAR TAB) 100 mg HS PO 12/20/16 21:00 01/19/17 20:59 12/22/16 20:37 100 MG Hydromorphone HCl (Dilaudid Inj) 1 mg Q3H PRN IV 12/20/16 14:00 01/03/17 13:59 12/23/16 12:56 1 MG Acetaminophen 100 ml @ 400 mls/hr Q8H PRN IV 12/20/16 14:00 01/19/17 13:59 12/21/16 19:28 400 MLS/HR Albuterol Sulfate (Ventolin 0.083% 2.5MG/3ML Neb) 2.5 mg Q4R PRN INH 12/21/16 08:45 01/20/17 08:44 12/23/16 09:03 2.5 MG Salmeterol Xinafoate/ Fluticasone (Advair Diskus 500/50 Inh) 2 puff BID INH 12/21/16 21:00 01/19/17 20:59 12/23/16 14:24 2 PUFF Menthol (Nice Bob) 1 bob PRN PRN PO 12/21/16 11:15 01/20/17 11:14 12/23/16 14:51 1 BOB Benzonatate (Tessalon Perles Cap) 100 mg TID PRN PO 12/23/16 12:45 01/22/17 12:44 12/23/16 14:47 100 MG Piperacillin Sod/ Tazobactam Sod 3.375 gm/Dextrose 115 ml @ 200 mls/hr Q6 IV 12/23/16 18:00 12/30/16 17:59 UNV Vancomycin HCl 1000 mg/Sodium Chloride 270 ml @ 125 mls/hr Q12 IV 12/23/16 21:00 12/30/16 20:59 UNV Review of Systems Constitutional: No fever Eyes: No worsening of vision ENT: No hearing loss Respiratory: + wheezing, + shortness of breath, + dyspnea on exertion, + dyspnea at rest, No cough, No sputum Cardiovascular: No chest pain Abdomen: No pain, No nausea, No vomiting, No diarrhea, No constipation Musculoskeletal: No joint pain, No muscle pain Genitourinary - Female: No dysuria Neurologic: + weakness, No numbness/tingling, No balance problems Psychiatric: No depression symptoms Endocrine: + fatigue Integumentary: No rash Physical Exam Date Time Temp Pulse Resp B/P (MAP) Pulse Ox O2 Delivery O2 Flow Rate FiO2 12/23/16 15:00 92 14 144/80 (101) 97 2.0 12/23/16 15:00 71 15 97 12/23/16 14:33 69 14 151/82 (105) 97 12/23/16 14:30 82 16 96 12/23/16 14:02 73 12 138/81 (100) 97 12/23/16 14:00 69 11 98 12/23/16 13:41 68 14 95 Nasal Cannula 5.0 12/23/16 13:31 74 10 137/80 (99) 97 12/23/16 13:30 76 18 121/76 (91) 96 12/23/16 13:30 73 13 96 12/23/16 13:20 71 10 142/89 (106) 96 12/23/16 13:20 68 16 142/89 (106) 96 Mask 10.0 12/23/16 13:16 69 12 130/112 (118) 97 12/23/16 13:15 67 16 134/79 (97) 96 Mask 10.0 12/23/16 13:02 70 13 121/68 (85) 12/23/16 13:00 70 121/76 (91) 96 12/23/16 13:00 70 13 97 12/23/16 12:46 68 17 132/76 (94) 96 12/23/16 12:33 70 21 132/77 (95) 93 12/23/16 12:30 36.5 67 16 142/89 (106) 95 Mask 10.0 12/23/16 12:30 36.5 88 135/85 (102) 93 12/23/16 12:30 75 15 93 12/23/16 12:27 36.5 87 18 133/85 (101) 93 12/23/16 12:15 73 15 146/76 94 Mask 10 12/23/16 12:00 36.5 69 18 129/59 93 Mask 8 12/23/16 11:50 72 16 150/79 94 Mask 8 12/23/16 11:45 77 16 95 Mask 9.0 12/23/16 11:40 67 24 134/81 95 Mask 10 12/23/16 11:30 63 17 141/91 93 Mask 10 12/23/16 11:20 63 13 144/66 93 Mask 10 12/23/16 11:10 61 15 116/96 93 Mask 13 12/23/16 11:02 36.0 66 16 162/83 90 Mask 13 12/23/16 10:50 92 12/23/16 07:11 36.8 16 162/84 94 Nasal Cannula 4.0 12/23/16 07:10 64 16 93 Nasal Cannula 4.0 12/23/16 06:48 36.8 73 16 162/84 (110) 94 Nasal Cannula 4.0 12/23/16 03:29 36.7 67 16 140/91 95 Nasal Cannula 4.0 Humidified Oxygen 12/23/16 03:20 58 14 94 Nasal Cannula 4.0 12/22/16 23:45 68 14 94 Nasal Cannula 4.0 12/22/16 23:25 Nasal Cannula 4.0 Humidified Oxygen 12/22/16 23:25 36.9 73 16 121/62 93 Nasal Cannula 4.0 Humidified Oxygen 12/22/16 20:38 125/75 (92) 12/22/16 20:00 Room Air 12/22/16 19:58 80 16 92 Nasal Cannula 3.5 12/22/16 19:57 80 12 92 Nasal Cannula 3.5 12/22/16 19:04 36.9 65 18 125/74 12/22/16 15:58 68 12 91 Nasal Cannula 3.5 General Appearance: well-appearing, obese, other (cervical collar in place) Head: normocephalic Eyes: PERRLA, EOMI ENT: normal ear exam Neck: other (cervical collar) Respiratory: other (decreased to rR>L no wheezing noted, good air movement otherwise) Cardiovasular: regular rate/rhythm, no murmur Abdomen: non tender, normal bowel sounds, other (difficult to assess organomegaly because of obesity) Back: normal inspection, other (dressing noted on upper back) Neuro: alert, oriented x 3 Laboratory Results Last 24 Hours Test 12/23/16 07:26 12/23/16 11:09 Bedside Glucose 75 mg/dl 115 mg/dl Diagnostic Results CHEST ONE VIEW PORTABLE HISTORY: Hypoxia, increased cough COMPARISON: Chest 12/22/2016. FINDINGS: There is a new right lower lobe airspace opacity. There are low lung volumes. The heart is stable in size. No pneumothorax. No pleural effusions. No evidence for pulmonary edema. IMPRESSION: A new right lower lobe airspace opacity. This favors a pneumonia possibly secondary to aspiration. Assessment & Plan 1. Acute hypoxic Resp failure secondary to COPD exacerbation vs PNA 2. POD 3 anterior cervical fusion POD 0 Posterior cervical fusion 3. COPD/Asthma 4. HTN 5. Borderline DM NVS - oriented x 3, monitor for delirium - tylenol, dilaudid and roxicodone for pain control per primary team CVS - continue to monitor - continue losartan RESP - O2 per nursing protocol - goal > 94% O2 sat - Duoneb - continue advair bid GI - Docusate for bowel regimen - clear liquid diet - Continue to monitor I&O ID - zosyn and vanco for potential aspiration pna - continue to follow WBC ENDO - BSG AC HS HEME - follow hgn and S&S of acute blood loss DVT Prophylaxis SCD Resident Physician Supervision Note: Dr. Guerrero was resident physician during care of patient. I separately evaluated patient and did history and exam. I discussed the case with the resident and generally agree with the findings and plan. Patient likely has COPD, reactive airway disease, significant smoking history however no formal diagnosis. Brought to the ICU for observation as well as concerns for cervical swelling and respiratory compromise. Documented By: Eduardo Trujillo DO
--- NOTE | 2016-12-23 16:25 | Pharmacy Progress Note ---
Pharmacy Abx Initial Consult Date of Service Dec 23, 2016. Pharmacy Dosing Scope Date of Consult: 12/23/16 Consultation requested by: Pharmacy is consulted to initiate Vancomycin and Zosyn dosing therapy, order appropriate labs and adjust drug dose/frequency. Subjective The patient is a 71 year old female admitted on Dec 20, 2016 at 07:[address] with [address] Today Dr. Ortega took her to the OR for spinal fusion. Medicine was consulted and a chest xray revealed possible aspiration pneumonia. Pharmacy was consulted for Zosyn and Vancomycin dosing per auto consult policy. Objective Height (Feet): 5 Height (Inches): 1.00 Weight (Kilograms): 103.100 Vital Signs (Past 12Hrs) Vital Signs Past 12 Hours Date Time Temp Pulse Resp B/P (MAP) Pulse Ox O2 Delivery O2 Flow Rate FiO2 12/23/16 15:00 92 14 144/80 (101) 97 2.0 12/23/16 15:00 71 15 97 12/23/16 14:33 69 14 151/82 (105) 97 12/23/16 14:30 82 16 96 12/23/16 14:02 73 12 138/81 (100) 97 12/23/16 14:00 69 11 98 12/23/16 13:41 68 14 95 Nasal Cannula 5.0 12/23/16 13:31 74 10 137/80 (99) 97 12/23/16 13:30 76 18 121/76 (91) 96 12/23/16 13:30 73 13 96 12/23/16 13:20 71 10 142/89 (106) 96 12/23/16 13:20 68 16 142/89 (106) 96 Mask 10.0 12/23/16 13:16 69 12 130/112 (118) 97 12/23/16 13:15 67 16 134/79 (97) 96 Mask 10.0 12/23/16 13:02 70 13 121/68 (85) 12/23/16 13:00 70 121/76 (91) 96 12/23/16 13:00 70 13 97 12/23/16 12:46 68 17 132/76 (94) 96 12/23/16 12:33 70 21 132/77 (95) 93 12/23/16 12:30 36.5 67 16 142/89 (106) 95 Mask 10.0 12/23/16 12:30 36.5 88 135/85 (102) 93 12/23/16 12:30 75 15 93 12/23/16 12:27 36.5 87 18 133/85 (101) 93 12/23/16 12:15 73 15 146/76 94 Mask 10 12/23/16 12:00 36.5 69 18 129/59 93 Mask 8 12/23/16 11:50 72 16 150/79 94 Mask 8 12/23/16 11:45 77 16 95 Mask 9.0 12/23/16 11:40 67 24 134/81 95 Mask 10 12/23/16 11:30 63 17 141/91 93 Mask 10 12/23/16 11:20 63 13 144/66 93 Mask 10 12/23/16 11:10 61 15 116/96 93 Mask 13 12/23/16 11:02 36.0 66 16 162/83 90 Mask 13 12/23/16 10:50 92 12/23/16 07:11 36.8 16 162/84 94 Nasal Cannula 4.0 12/23/16 07:10 64 16 93 Nasal Cannula 4.0 12/23/16 06:48 36.8 73 16 162/84 (110) 94 Nasal Cannula 4.0 Lab Results (24Hrs) Laboratory Tests (24 Hours) Test 12/23/16 16:10 Micro Results MRSA swab ordered Assessment & Plan Assessment 71 year old female post spinal fusion today that upon post surgery chest xray was shown to have possible aspiration pneumonia. Plan Vancomycin and Zosyn for treatment of HCAP (possibly aspiration) Vancomycin IV * Loading dose: 2600 mg (25mg/kg) * Maintenance dose: 1250 mg IV (12 mg/kg) every 12 hours * Goal trough level for PNX : 15-20 mcg/mL * Trough level ordered prior to 0600 dose on 12/25/16. * A less than traditional dose has been selected due to likelihood of drug accumulation in obese patient. I estimated her half life at around 9 hours, she will surely be prone to accumulation. Will check trough somewhat early based on dosing times prior to 0600 dose on 12/25/16 as noted Piperacillin/tazobactam * 4.5 g bolus administered over 30 minutes, then 4.5 g IV extended infusion every 8 hours for CrCl greater than 20 mL/min * Aggressive dosing selected due to BMI > 35 Pharmacy will continue to follow and will adjust dose/frequency as necessary. Thank you.
[2016-12-23 17:19] LABS: COMPLETE YES; HEMATOCRIT 42.5 % (37-47); IG% 0.2 %; LYMPH % 6.5 %; LYMPH ABS # 0.83 K/uL (1.2-3.4); MEAN CELL VOLUME 91.4 fL (80-100); MEAN CORPUSCULAR HEMOGLOBIN 30.5 pg (25-34); MEAN CORPUSCULAR HGB CONC 33.4 g/dl (32-36); MEAN PLATELET VOLUME 9.6 fL (7.4-10.4); MONO % 5.8 %; NEUT % 87.5 %; PLATELET COUNT 311 K/uL (130-400); RED BLOOD COUNT 4.65 M/uL (4.2-5.4); WHITE BLOOD COUNT 12.83 K/uL (4.8-10.8)
[2016-12-23] MEDS: SODIUM CHLORIDE 0.9% 1000ML 1,000 ML IV SCH (18:00)
[2016-12-23 18:15] LABS: ALB/GLOB RATIO 0.9 (0.9-2); BUN/CREATININE RATIO 21.2 (10-20); CALCIUM 8.6 mg/dl (8.5-10.1); CREATININE 0.61 mg/dl (0.60-1.20); POTASSIUM 4.1 mmol/L (3.5-5.1)
--- NOTE | 2016-12-23 18:40 | DIAGNOSTIC IMAGING REPORT ---
ULTRASOUND VENOUS DOPPLER LWR EXT BILA CLINICAL HISTORY: Hypoxia. Possible pulmonary embolism with DVT. COMPARISON STUDY: No previous studies for comparison. FINDINGS: Real-time and color flow Doppler imaging were performed. Flow was seen within the femoral, popliteal and calf veins with no intraluminal thrombus demonstrated. The saphenous vein is patent. IMPRESSION: No evidence of lower extremity DVT. Electronically signed by: Gigi Hui M.D. 12/23/2016 6:39 PM Dictated Date/Time: 12/23/2016 6:38 PM
[2016-12-23] MEDS: ALBUT/IPRATROP 3MG/0.5MG NEB 3 ML VIAL INH SCH ×2 (19:14→23:23)
[2016-12-23] MEDS: LOSARTAN POTASSIUM 50 MG TAB PO SCH (20:06)
[2016-12-23] MEDS: HYDROmorphone INJ 0.5 MG/0.5 ML SYR IV PRN (21:16)
[2016-12-23] MEDS: PIPERACILL/TAZOBAC IV 4.5 GM in DEXTROSE 5% 100ML 100 ML IV SCH (22:40)
[2016-12-24] VITALS (20 sets, daily range): BP systolic 108–162; BP diastolic 61–90; PULSE 72–88; TEMP 36.7–37.3; O2SAT 92–97
[2016-12-24] MEDS: ALBUT/IPRATROP 3MG/0.5MG NEB 3 ML VIAL INH SCH ×5 (03:31→20:17)
[2016-12-24] MEDS: HYDROmorphone INJ 1 MG/ML SYR IV PRN ×5 (04:03→23:55)
[2016-12-24] MEDS ORDERED: VANCOMYCIN INJ 1,250 MG in SODIUM CHLORIDE 0.9% 250ML 250 ML IV SCH (06:00)
[2016-12-24 06:06] LABS: BASO % 0.1 %; BASO ABS # 0.01 K/uL (0-0.2); COMPLETE YES; EOS % 0.7 %; HEMATOCRIT 39.9 % (37-47); IG% 0.3 %; LYMPH % 17.1 %; LYMPH ABS # 1.96 K/uL (1.2-3.4); MEAN CELL VOLUME 91.5 fL (80-100); MEAN CORPUSCULAR HGB CONC 33.8 g/dl (32-36); MEAN PLATELET VOLUME 9.6 fL (7.4-10.4); MONO % 10.4 %; NEUT % 71.4 %; PLATELET COUNT 284 K/uL (130-400); RED BLOOD COUNT 4.36 M/uL (4.2-5.4); WHITE BLOOD COUNT 11.49 K/uL (4.8-10.8)
[2016-12-24] MEDS: PIPERACILL/TAZOBAC IV 4.5 GM in DEXTROSE 5% 100ML 100 ML IV SCH (06:11)
[2016-12-24 06:56] LABS: BUN/CREATININE RATIO 17.1 (10-20); CREATININE 0.54 mg/dl (0.60-1.20); PHOSPHORUS 2.5 mg/dl (2.5-4.9); POTASSIUM 3.4 mmol/L (3.5-5.1)
--- NOTE | 2016-12-24 07:09 | DIAGNOSTIC IMAGING REPORT ---
CHEST ONE VIEW PORTABLE CLINICAL HISTORY: pnea pneumonia COMPARISON STUDY: 12/23/2016 FINDINGS: Improved findings of pulmonary vascular congestion. Slight decrease in cardiac size. Moderate decrease in prominence of pulmonary vasculature. Persistent atelectasis right base IMPRESSION: Moderately improved exam. Persistent atelectatic change right base. Electronically signed by: Cristopher Jackson M.D. 12/24/2016 7:08 AM Dictated Date/Time: 12/24/2016 7:07 AM
[2016-12-24] MEDS: CHECK SCOPOLAMINE PATCH PLACEMENT SCH (07:17)
--- NOTE | 2016-12-24 07:58 | Anesthesiology Progress Note ---
Anesthesia Post Op Note Date & Time Dec 24, 2016 at 07:55 Vital Signs Vital Signs Past 12 Hours Date Time Temp Pulse Resp B/P (MAP) Pulse Ox O2 Delivery O2 Flow Rate FiO2 12/24/16 07:12 88 16 96 Nasal Cannula 2.0 12/24/16 07:11 88 18 96 Nasal Cannula 2.0 12/24/16 06:00 83 14 94 Nasal Cannula 2.0 12/24/16 04:00 36.8 82 16 122/61 96 Nasal Cannula 2.0 12/24/16 04:00 36.8 82 16 122/61 (81) 96 Nasal Cannula 2.0 12/24/16 04:00 Nasal Cannula 2.0 12/24/16 03:31 81 18 95 Nasal Cannula 2.0 12/24/16 03:31 81 18 95 Nasal Cannula 2.0 12/24/16 02:00 79 14 144/84 (104) 95 Nasal Cannula 2.0 12/24/16 00:01 36.9 85 14 140/72 (94) 94 Nasal Cannula 2.0 12/23/16 23:59 Nasal Cannula 2.0 12/23/16 23:59 36.9 85 14 140/72 94 Nasal Cannula 2.0 12/23/16 23:24 86 18 94 Nasal Cannula 2.0 12/23/16 23:23 86 18 94 Nasal Cannula 2.0 12/23/16 22:00 86 12 155/75 (101) 96 Nasal Cannula 2.0 12/23/16 20:00 37.0 79 14 149/81 94 Nasal Cannula 2.0 12/23/16 20:00 Nasal Cannula 2.0 12/23/16 20:00 37.0 79 14 149/81 (103) 94 Nasal Cannula 2.0 Notes Mental Status: alert / awake / arousable, participated in evaluation Pt Amnestic to Procedure: Yes Nausea / Vomiting: adequately controlled Pain: improving with treatment Airway Patency, RR, SpO2: stable & adequate BP & HR: stable & adequate Hydration State: stable & adequate Anesthetic Complications: no major complications apparent
[2016-12-24] MEDS: DOCUSATE SODIUM 100 MG CAP PO SCH ×2 (08:00→20:54)
[2016-12-24] MEDS: ASPIRIN 81 MG ECTAB PO SCH (08:00)
[2016-12-24] MEDS: FLUTICASONE/SALMETEROL (ADVAIR) 500/50 INH 14 PUFF INH SCH ×2 (08:00→20:17)
[2016-12-24] MEDS: POLYETHYLENE (MIRALAX) 17 GM PACK PO SCH (08:01)
[2016-12-24] MEDS: SODIUM CHLORIDE 0.9% 1000ML 1,000 ML IV SCH ×2 (08:03→20:16)
--- NOTE | 2016-12-24 09:29 | PROGRESS NOTE ---
DATE: 12/24/2016 SUBJECTIVE: Postop day #1 status post posterior cervical decompression and fusion. Complaining of posterior cervicalgia consistent with the procedure. Arm symptoms improving. Vital signs stable. T-max 36.9. STU drained 130 mL. Hematocrit this a.m. is 39.9. OBJECTIVE: On exam, she is in chair at bedside. Has good strength to testing. Is alert and oriented, swallowing reasonably well. ASSESSMENT: Status post anterior, posterior cervical decompression and fusion. PLAN: At this time, in light of her status, we will transfer her to the [facility] floor. We will initiate physical therapy, occupational therapy today. She may remove the brace when out of bed, should only be necessary when she is up and ambulatory with therapy.
--- NOTE | 2016-12-24 10:21 | Critical Care Progress Note ---
Critical Care Progress Note Date of Service Dec 24, 2016. ICU Day ICU Day Number: [address] Trujillo Subjective Patient was up in chair sleeping last night. Pain is well controlled on current regimen. Ongoing oxygen requirement however no SOB. She does not a loose cough however non productive. Objective General: not in acute distress, sitting up in chair and neck brace in place, obese Skin: no rashes noted, no suspicious lesions, no areas of inflammations/ lacerations/ erythema noted CVS: S1/ S2 noted, RRR, no rubs/ murmurs noted, no cyanosis RVS: not in acute respiratory distress, no wheezing/ rales/ crackles noted, decreased to the right base Neck: inspection WNL, dressings noted and dry on ant and post neck ABD: BSx4, no pain/ tenderness on palpation, no organomegaly palpable however difficult to appropriately asses because of obesity and sitting up in chair MSK: inspection of all limbs WNL, motor and sensation intact in all limbs, no swelling/ pain on palpation of joints NVS: PERRL, EOMI, affect appropriate, Ox3 Current SOFA Score SOFA Score Response (Comments) Value Platelets (x10) > 150 0 Bilirubin (mg/dL) < 1.2 0 Blaise Coma Score 15 0 Level of Hypotension No Hypotension 0 Creatinine (mg/dL) < 1.2 0 Total 0 Assessment & Plan 1. Acute hypoxic Resp failure secondary to COPD exacerbation vs PNA 2. POD 4 anterior cervical fusion POD 1 Posterior cervical fusion 3. COPD/Asthma 4. HTN 5. Borderline DM 6. Hypokalemia NVS - oriented x 3, monitor for delirium - tylenol, dilaudid and roxicodone for pain control per primary team CVS - continue to monitor - continue losartan RESP - O2 per nursing protocol - goal > 94% O2 sat - Duoneb - continue advair bid GI - Docusate for bowel regimen - clear liquid diet - advance per primary team - Continue to monitor I&O ID - zosyn and vanco for potential aspiration pna - deescalated to Augmentin - recommend a 10 day course of Augmentin - recommend a follow up with PCP in 7 days for repeat CXR and reassessment of hypoxia - continue to follow WBC- has been improving ENDO - BSG AC HS FEN - slightly hypokalemic at 3.4 - replete and recheck in am HEME - follow hgb and S&S of acute blood loss DVT Prophylaxis SCD Patient is appropriate for downgrade Resident Physician Supervision Note: Dr. Guerrero was resident physician during care of patient. I separately evaluated patient and did history and exam. I discussed the case with the resident and generally agree with the findings and plan. Documented By: Eduardo Trujillo DO Consults & Procedures Consultants: Dr Ortega- surgeon- primary Procedures: Ant/ Post spinal cervical fusion Data Medications: Current Inpatient Medications Medications (Trade) Dose Ordered Sig/Ratna Route Start Time Stop Time Status Last Admin Dose Admin Racepinephrine (Raccemic Epinephrine 2.25% 0.5ML Neb) 0.5 ml ONE PRN INH 12/20/16 10:45 Hydromorphone HCl (Dilaudid Inj) 0.5 mg Q3H PRN IV 12/20/16 10:45 01/03/17 10:44 12/23/16 21:16 0.5 MG Magnesium Hydroxide (Milk Of Magnesia Susp) 30 ml DAILY PRN PO 12/20/16 10:45 01/19/17 10:44 Docusate Sodium (coLACE CAP) 100 mg BID PO 12/20/16 21:00 01/19/17 20:59 12/24/16 08:00 100 MG Ondansetron HCl (Zofran Inj) 4 mg Q6 PRN IV 12/20/16 10:45 01/19/17 10:44 Lorazepam (Ativan Tab) 0.5 mg Q8H PRN PO 12/20/16 10:45 01/19/17 10:44 Lorazepam 0.5 mg/ Syringe 1 ml @ 1 mls/min Q8H PRN IV 12/20/16 10:45 01/19/17 10:44 Diphenhydramine HCl (Benadryl Inj) 25 mg Q6H PRN IV 12/20/16 10:45 01/19/17 10:44 Pneumococcal Polysaccharide Vaccine 1 ea PRN PRN N/A 12/20/16 10:45 01/19/17 10:44 Influenza Virus Vacc Triv Types A&B 1 ea PRN PRN N/A 12/20/16 10:45 01/19/17 10:44 Oxycodone HCl (Roxicodone Immediate Rel Tab) 5mg for pain scale 4-6 1... Q4H PRN PO 12/20/16 10:45 01/03/17 10:44 12/21/16 08:48 10 MG Polyethylene (Miralax Powder Packet) 17 gm DAILY PO 12/22/16 09:00 01/21/17 08:59 12/24/16 08:01 17 GM Bisacodyl (Dulcolax Tab) 5 mg DAILY PRN PO 12/22/16 06:00 01/21/17 05:59 Bisacodyl (Dulcolax Supp) 10 mg DAILY PRN IN 12/22/16 06:00 01/21/17 05:59 Dexamethasone Sodium Phosphate 8 mg/Syringe 2 ml @ 1 mls/min ONE PRN IV 12/20/16 10:45 Naloxone HCl (Narcan Inj) 0.1 mg Q5M PRN IV 12/20/16 10:45 01/19/17 10:44 Aspirin (Ecotrin Tab) 81 mg QAM PO 12/21/16 09:00 01/20/17 08:59 12/24/16 08:00 81 MG Losartan Potassium (coZAAR TAB) 100 mg HS PO 12/20/16 21:00 01/19/17 20:59 12/23/16 20:06 100 MG Hydromorphone HCl (Dilaudid Inj) 1 mg Q3H PRN IV 12/20/16 14:00 01/03/17 13:59 12/24/16 07:19 1 MG Acetaminophen 100 ml @ 400 mls/hr Q8H PRN IV 12/20/16 14:00 01/19/17 13:59 12/21/16 19:28 400 MLS/HR Albuterol Sulfate (Ventolin 0.083% 2.5MG/3ML Neb) 2.5 mg Q4R PRN INH 12/21/16 08:45 01/20/17 08:44 12/23/16 09:03 2.5 MG Salmeterol Xinafoate/ Fluticasone (Advair Diskus 500/50 Inh) 2 puff BID INH 12/21/16 21:00 01/19/17 20:59 12/24/16 08:00 2 PUFF Menthol (Nice Bob) 1 bob PRN PRN PO 12/21/16 11:15 01/20/17 11:14 12/23/16 14:51 1 BOB Benzonatate (Tessalon Perles Cap) 100 mg TID PRN PO 12/23/16 12:45 01/22/17 12:44 12/23/16 14:47 100 MG Albuterol/ Ipratropium (Duoneb) 3 ml Q4R INH 12/23/16 20:00 01/22/17 19:59 12/24/16 07:11 3 ML Sodium Chloride 1,000 ml @ 75 mls/hr [id number] IV 12/23/16 18:00 01/22/17 17:59 12/24/16 08:03 75 MLS/HR Amoxicillin/ Clavulanate Potassium (Augmentin Tab) 875 mg BIDM PO 12/24/16 16:30 12/31/16 16:29 Vital Signs: Date Time Temp Pulse Resp B/P (MAP) Pulse Ox O2 Delivery O2 Flow Rate FiO2 12/24/16 09:27 94 Nasal Cannula 2.0 12/24/16 09:10 36.8 79 16 120/76 (91) 94 Nasal Cannula 2.0 12/24/16 09:05 36.7 80 16 94 2.0 12/24/16 08:00 36.7 80 16 108/75 (86) 94 2.0 12/24/16 08:00 Nasal Cannula 2.0 94 12/24/16 07:12 88 16 96 Nasal Cannula 2.0 12/24/16 07:11 88 18 96 Nasal Cannula 2.0 12/24/16 06:00 83 14 94 Nasal Cannula 2.0 12/24/16 04:00 36.8 82 16 122/61 96 Nasal Cannula 2.0 12/24/16 04:00 36.8 82 16 122/61 (81) 96 Nasal Cannula 2.0 12/24/16 04:00 Nasal Cannula 2.0 12/24/16 03:31 81 18 95 Nasal Cannula 2.0 12/24/16 03:31 81 18 95 Nasal Cannula 2.0 12/24/16 02:00 79 14 144/84 (104) 95 Nasal Cannula 2.0 12/24/16 00:01 36.9 85 14 140/72 (94) 94 Nasal Cannula 2.0 12/23/16 23:59 Nasal Cannula 2.0 12/23/16 23:59 36.9 85 14 140/72 94 Nasal Cannula 2.0 12/23/16 23:24 86 18 94 Nasal Cannula 2.0 12/23/16 23:23 86 18 94 Nasal Cannula 2.0 12/23/16 22:00 86 12 155/75 (101) 96 Nasal Cannula 2.0 12/23/16 20:00 37.0 79 14 149/81 94 Nasal Cannula 2.0 12/23/16 20:00 Nasal Cannula 2.0 12/23/16 20:00 37.0 79 14 149/81 (103) 94 Nasal Cannula 2.0 12/23/16 19:16 88 16 94 Nasal Cannula 2.0 12/23/16 19:15 88 16 94 Nasal Cannula 2.0 12/23/16 18:22 74 15 156/80 (105) 96 2.0 12/23/16 18:00 75 20 156/80 (105) 94 Room Air 2.0 12/23/16 17:45 78 14 93 Nasal Cannula 2.0 12/23/16 17:00 76 15 133/68 (89) 94 2.0 12/23/16 17:00 36.7 75 18 133/68 (89) 94 Room Air 2.0 12/23/16 16:00 Nasal Cannula 3.0 96 12/23/16 16:00 36.7 73 16 137/71 (93) 96 Room Air 2.0 12/23/16 16:00 36.7 73 15 137/71 (93) 96 2.0 12/23/16 15:30 82 21 91 12/23/16 15:02 79 13 151/73 (99) 96 12/23/16 15:00 71 15 97 12/23/16 15:00 92 14 144/80 (101) 97 2.0 12/23/16 15:00 71 15 97 12/23/16 14:33 69 14 151/82 (105) 97 12/23/16 14:33 69 14 151/82 (105) 97 12/23/16 14:30 82 16 96 12/23/16 14:30 82 16 96 12/23/16 14:02 73 12 138/81 (100) 97 12/23/16 14:02 73 12 138/81 (100) 97 6/19/17 14:00 69 11 98 12/23/16 14:00 69 11 98 12/23/16 13:41 68 14 95 Nasal Cannula 5.0 12/23/16 13:31 74 10 137/80 (99) 97 12/23/16 13:31 10 137/80 (99) 97 12/23/16 13:30 13 96 12/23/16 13:30 76 18 121/76 (91) 96 12/23/16 13:30 73 13 96 12/23/16 13:20 71 10 142/89 (106) 96 12/23/16 13:20 68 16 142/89 (106) 96 Mask 10.0 12/23/16 13:20 10 142/89 (106) 96 12/23/16 13:16 12 130/112 (118) 97 12/23/16 13:16 69 12 130/112 (118) 97 12/23/16 13:15 67 16 134/79 (97) 96 Mask 10.0 12/23/16 13:02 13 121/68 (85) 12/23/16 13:02 70 13 121/68 (85) 12/23/16 13:00 70 121/76 (91) 96 12/23/16 13:00 70 13 97 12/23/16 13:00 13 97 12/23/16 12:46 68 17 132/76 (94) 96 12/23/16 12:33 70 21 132/77 (95) 93 12/23/16 12:30 36.5 67 16 142/89 (106) 95 Mask 10.0 12/23/16 12:30 36.5 88 135/85 (102) 93 12/23/16 12:30 75 15 93 12/23/16 12:27 36.5 87 18 133/85 (101) 93 12/23/16 12:15 73 15 146/76 94 Mask 10 12/23/16 12:00 36.5 69 18 129/59 93 Mask 8 12/23/16 11:50 72 16 150/79 94 Mask 8 12/23/16 11:45 77 16 95 Mask 9.0 12/23/16 11:40 67 24 134/81 95 Mask 10 12/23/16 11:30 63 17 141/91 93 Mask 10 12/23/16 11:20 63 13 144/66 93 Mask 10 12/23/16 11:10 61 15 116/96 93 Mask 13 12/23/16 11:02 36.0 66 16 162/83 90 Mask 13 12/23/16 10:50 92 Laboratory Results: Last 24 Hours Test 12/23/16 11:09 12/23/16 15:47 12/23/16 17:05 12/23/16 20:33 Bedside Glucose 115 mg/dl 114 mg/dl 123 mg/dl White Blood Count 12.83 K/uL Red Blood Count 4.65 M/uL Hemoglobin 14.2 g/dL Hematocrit 42.5 % Mean Corpuscular Volume 91.4 fL Mean Corpuscular Hemoglobin 30.5 pg Mean Corpuscular Hemoglobin Concent 33.4 g/dl Platelet Count 311 K/uL Mean Platelet Volume 9.6 fL Neutrophils (%) (Auto) 87.5 % Lymphocytes (%) (Auto) 6.5 % Monocytes (%) (Auto) 5.8 % Eosinophils (%) (Auto) 0.0 % Basophils (%) (Auto) 0.0 % Neutrophils # (Auto) 11.22 K/uL Lymphocytes # (Auto) 0.83 K/uL Monocytes # (Auto) 0.75 K/uL Eosinophils # (Auto) 0.00 K/uL Basophils # (Auto) 0.00 K/uL RDW Standard Deviation 45.8 fL RDW Coefficient of Variation 13.8 % Immature Granulocyte % (Auto) 0.2 % Immature Granulocyte # (Auto) 0.03 K/uL Sodium Level 143 mmol/L Potassium Level 4.1 mmol/L Chloride Level 108 mmol/L Carbon Dioxide Level 28 mmol/L Anion Gap 7.0 mmol/L Blood Urea Nitrogen 13 mg/dl Creatinine 0.61 mg/dl Est Creatinine Clear Calc Drug Dose 94.7 ml/min Estimated GFR () 106.5 Estimated GFR (Non- 91.9 BUN/Creatinine Ratio 21.2 Random Glucose 119 mg/dl Calcium Level 8.6 mg/dl Total Bilirubin 1.0 mg/dl Aspartate Amino Transf (AST/SGOT) 36 U/L Alanine Aminotransferase (ALT/SGPT) 50 U/L Alkaline Phosphatase 76 U/L Total Protein 6.7 gm/dl Albumin 3.2 gm/dl Globulin 3.5 gm/dl Albumin/Globulin Ratio 0.9 Test 12/24/16 05:37 12/24/16 05:40 Bedside Glucose 114 mg/dl White Blood Count 11.49 K/uL Red Blood Count 4.36 M/uL Hemoglobin 13.5 g/dL Hematocrit 39.9 % Mean Corpuscular Volume 91.5 fL Mean Corpuscular Hemoglobin 31.0 pg Mean Corpuscular Hemoglobin Concent 33.8 g/dl Platelet Count 284 K/uL Mean Platelet Volume 9.6 fL Neutrophils (%) (Auto) 71.4 % Lymphocytes (%) (Auto) 17.1 % Monocytes (%) (Auto) 10.4 % Eosinophils (%) (Auto) 0.7 % Basophils (%) (Auto) 0.1 % Neutrophils # (Auto) 8.22 K/uL Lymphocytes # (Auto) 1.96 K/uL Monocytes # (Auto) 1.19 K/uL Eosinophils # (Auto) 0.08 K/uL Basophils # (Auto) 0.01 K/uL RDW Standard Deviation 45.8 fL RDW Coefficient of Variation 13.6 % Immature Granulocyte % (Auto) 0.3 % Immature Granulocyte # (Auto) 0.03 K/uL Sodium Level 142 mmol/L Potassium Level 3.4 mmol/L Chloride Level 107 mmol/L Carbon Dioxide Level 25 mmol/L Anion Gap 10.0 mmol/L Blood Urea Nitrogen 9 mg/dl Creatinine 0.54 mg/dl Est Creatinine Clear Calc Drug Dose 107.0 ml/min Estimated GFR () 110.8 Estimated GFR (Non- 95.6 BUN/Creatinine Ratio 17.1 Random Glucose 113 mg/dl Calcium Level 8.0 mg/dl Phosphorus Level 2.5 mg/dl Magnesium Level 2.0 mg/dl
[2016-12-24] MEDS: OXYCODONE HCL IR 5 MG TAB (IMMEDIATE RELEASE) PO PRN (10:44)
[2016-12-24] MEDS ORDERED: POTASSIUM CHLORIDE 20 MEQ TABCR PO ONE (11:00)
--- NOTE | 2016-12-24 16:25 | Anesthesiology Progress Note ---
Anesthesia Progress Note Date of Service Dec 24, 2016. Progress Notes The patient is a 71 y/o female with a h/o COPD, +tob, HTN, DMII and morbid obesity POD 4 anterior cervical fusion POD 1 Posterior cervical fusion. The patient was admitted to the ICU postoperatively yesterday for respiratory failure secondary to COPD exacerbation vs aspiration pneumonia. She had experienced respiratory failure after her posterior fusion on Friday as well and required oxygen over the weekend to maintain her sats. Her oxygen requirement improved overnight and she is currently saturating 97% on 2lnc. When I went to see the patient today she was resting comfortably in a chair and was receiving a nebulizer treatment. She stated that she felt her breathing was comfortably and denied any dyspnea.
[2016-12-24] MEDS: AMOXICILLIN/CLAVULANATE TAB 875 MG TAB PO SCH (17:48)
[2016-12-24] MEDS: LOSARTAN POTASSIUM 50 MG TAB PO SCH (20:54)
[2016-12-25] VITALS (13 sets, daily range): BP systolic 130–145; BP diastolic 78–86; PULSE 80–99; TEMP 36.8–37.2; O2SAT 95–97
[2016-12-25] MEDS: ALBUT/IPRATROP 3MG/0.5MG NEB 3 ML VIAL INH SCH ×7 (04:00→23:45)
[2016-12-25] MEDS ORDERED: VANCOMYCIN TROUGH SCH (05:30)
[2016-12-25] MEDS: HYDROmorphone INJ 0.5 MG/0.5 ML SYR IV PRN (05:57)
[2016-12-25 06:29] LABS: CREATININE 0.49 mg/dl (0.60-1.20)
[2016-12-25] MEDS: FLUTICASONE/SALMETEROL (ADVAIR) 500/50 INH 14 PUFF INH SCH ×2 (08:40→21:09)
[2016-12-25] MEDS: AMOXICILLIN/CLAVULANATE TAB 875 MG TAB PO SCH ×2 (08:40→17:49)
[2016-12-25] MEDS: DOCUSATE SODIUM 100 MG CAP PO SCH ×2 (08:41→21:09)
[2016-12-25] MEDS: POLYETHYLENE (MIRALAX) 17 GM PACK PO SCH (09:30)
[2016-12-25] MEDS: ASPIRIN 81 MG ECTAB PO SCH (09:30)
[2016-12-25] MEDS: SODIUM CHLORIDE 0.9% 1000ML 1,000 ML IV SCH (09:30)
[2016-12-25] MEDS: OXYCODONE HCL IR 5 MG TAB (IMMEDIATE RELEASE) PO PRN ×3 (09:30→21:09)
[2016-12-25] MEDS ORDERED: RXC5 PO (10:11)
--- NOTE | 2016-12-25 10:11 | Discharge Instructions ---
Discharge Instructions Date of Service Dec 25, 2016. Admission Reason for Admission: Spinal Stenosis Discharge Discharge Diagnosis / Problem: stenosis Discharge Goals Goal(s): Improve function Activity Recommendations Activity Limitations: per Instructions/Follow-up section . Instructions / Follow-Up Instructions / Follow-Up ACTIVITY RECOMMENDATIONS: SELF CARE INSTRUCTIONS AFTER CERVICAL FUSIONS 1. No smoking. Smoking drastically decreases the chance of a solid fusion. 2. No bending, lifting more than 5 pounds, or twisting (roll like a log when turning in bed). 3. You may shower 3 days after surgery. Thoroughly dry wound. Do not soak in the tub. 4. Cervical collar: Must be worn at all times including sleeping. You may remove the brace only to bath, eat and if you are sitting in a recliner. 5. Please walk as much as you can for exercise. Gradually increase the distance that you walk as your endurance increases. SPECIAL CARE INSTRUCTIONS: VERY IMPORTANT TO READ AND REVIEW A. Do not take any anti-inflammatory medications (i.e. Indocin, Advil, Aspirin, Naprosyn, Aleve, Motrin, etc.) as these may inhibit the chance of a solid fusion. Tylenol is okay to take. B. Your surgical incision has been closed with a cosmetic suture under the skin that will dissolve in about 6 weeks. In 14 days, you can use a pair of clean scissors and cut the suture that is left outside of the skin at the ends of your incision. C. Complications are uncommon, but please contact us if you have any signs or symptoms of: 1. wound infection (fever higher than 102.5 degrees F, redness, separation of wound, drainage, or increasing pain from the incision) 2. blood clots in legs (pain, swelling, redness and warmth in legs) 3. urinary tract infection (fever higher than 102.5 degrees, burning upon urination or increased frequency of urination) 4. nerve problems (inability to walk on your toes or heels, numbness, loss of bowel or bladder control) 5. any other symptoms that concern you. D. Please call the office at if you have any concerns or questions about your operation or recovery. MANAGING PAIN AFTER SPINAL SURGERY 1. Narcotic medication is intended for short-term use and will be provided for surgical pain. Surgical pain usually lasts for a period of 4-6 weeks. Narcotic medication includes Percocet, Vicodin, Darvocet, Tylenol #3 or Lortab. 2. Longer-term pain is more appropriately treated with non-narcotic medication such as Tylenol ES. 3. Muscle spasm is not appropriately treated with narcotics. Muscle relaxers such as Soma, Flexeril or Skelaxin can be used along with Tylenol ES. 4. Remember that we all live with some "aches and pains". This is not unusual or uncommon after an injury or as we get older. 5. We will provide appropriate medication within the normal guidelines of their prescribed use. We will also be very cautious and aware of potential abuse and extended duration of patients' medication needs. 6. Please allow 2-3 days to process refills. Prescriptions will not be mailed but must be picked up at the office. FOLLOW UP VISIT: Keep your scheduled follow-up appointment. Any questions, please call the office at . Current Hospital Diet Patient's current hospital diet: Full Liquid Diet, Diabetes Type 2 Diet Discharge Diet Recommended Diet: Regular Diet Procedures Procedures Performed: C3-T2 Posterior Cervical Fusion with Bone Morphogentic Protein Pending Studies Studies pending at discharge: no Medical Emergencies . Who to Call and When: Medical Emergencies: If at any time you feel your situation is an emergency, please call 911 immediately. . Non-Emergent Contact Non-Emergency issues call your: Primary Care Provider . "Provider Documentation" section prepared by Van Ortega. . VTE Core Measure Inpt VTE Proph given/why not?: Melvina Forrest, [facility]
[2016-12-25] MEDS: HYDROmorphone INJ 1 MG/ML SYR IV PRN (10:43)
--- NOTE | 2016-12-25 15:29 | PROGRESS NOTE ---
DATE: 12/25/2016 Postop day #2. Overall, she is making steady gains. Neck pain still significant. Vital signs stable. T-max 36.8. STU drained ____ mL today. Hematocrit stable at 39.9 on exam. She is in chair at bedside, has good strength to testing. Appears comfortable. ASSESSMENT: Status post anterior, posterior cervical discectomy and fusion. PLAN: At this time, we are planning for discharge home tomorrow with home health. She understands and agrees.
[2016-12-25] MEDS: LOSARTAN POTASSIUM 50 MG TAB PO SCH (21:09)
[2016-12-26] VITALS (8 sets, daily range): BP systolic 129; BP diastolic 78; PULSE 85–96; TEMP 37.1; O2SAT 91–98
[2016-12-26] MEDS: SODIUM CHLORIDE 0.9% 1000ML 1,000 ML IV SCH ×2 (00:32→12:40)
[2016-12-26] MEDS: ALBUT/IPRATROP 3MG/0.5MG NEB 3 ML VIAL INH SCH ×3 (01:59→11:44)
[2016-12-26 07:02] LABS: CREATININE 0.41 mg/dl (0.60-1.20)
[2016-12-26] MEDS: OXYCODONE HCL IR 5 MG TAB (IMMEDIATE RELEASE) PO PRN ×2 (08:05→13:02)
[2016-12-26] MEDS: DOCUSATE SODIUM 100 MG CAP PO SCH (08:06)
[2016-12-26] MEDS: FLUTICASONE/SALMETEROL (ADVAIR) 500/50 INH 14 PUFF INH SCH (08:06)
[2016-12-26] MEDS: ASPIRIN 81 MG ECTAB PO SCH (08:06)
[2016-12-26] MEDS: AMOXICILLIN/CLAVULANATE TAB 875 MG TAB PO SCH (08:06)
[2016-12-26] MEDS: POLYETHYLENE (MIRALAX) 17 GM PACK PO SCH (09:00)
--- NOTE | 2016-12-27 01:16 | DISCHARGE SUMMARY ---
PRINCIPAL DIAGNOSIS: Cervical spinal stenosis with myeloradiculopathy. HOSPITAL COURSE FOLLOWS: On 12/20, the patient underwent anterior cervical corpectomy and fusion and tolerated this well and taken to orthopedic floor postoperatively. She did well postoperatively for 2 days and on 12/23, underwent posterior cervical decompression and fusion, tolerated this well and taken to the ICU overnight, tolerated this well, improved appropriately, returned to the orthopedic floor, tolerated therapy nicely, STU drain decreased appropriately. Subsequently on December 26, she was discharged home. Discharge orders and instructions found on the chart for further review.
--- NOTE | 2017-01-06 10:11 | Discharge Summary ---
Orthopedic Discharge Summary Admission Date/Reason Dec 20, 2016 at 07:30 Spinal Stenosis. Discharge Date/Disposition Dec 26, 2016 Home with services (home health) Diagnosis Principal Diagnosis: cervical spinal stenosis Procedure(s) Performed anterio cervical fusion posterior cervical fusion Medication Reconciliation New Medications: Oxycodone HCl (Oxycodone HCl) 5 Mg Tab 5-10 MG PO Q4H PRN for moderate-severe pain for 30 Days, #60 TAB Continued Medications: Albuterol (Proair Hfa) Aers 2 PUFFS INH Q4H PRN for SOB/Wheezing Aspirin (Aspirin 81) 81 Mg Tab 81 MG PO QAM Clobetasol Propionate (Clobetasol Propionate) 45 Appln/15 Gm Oint 1 APPLN TOP BID PRN for PRN for 30 Days, #60 GM 2 Refills Fluticasone Prop/Salmeterol (Advair Diskus 500-50 Mcg/Dose) 14 Puff/1 Inhaler Aerp 2 PUFFS INH BID Losartan Potassium (Cozaar) 100 Mg Tab 100 MG PO HS, TAB Zafirlukast (Zafirlukast) 20 Mg Tab 20 MG PO BID Discontinued Medications: Ibuprofen (Advil) 200 Mg Tab 400 MG PO PRN, TAB Admission Physical Exam As per Admitting History & Physical. Discharge Instructions Please refer to the electronic Patient Visit Report (Discharge Instructions) for additional information.
== END 2016-12-26 14:01 | disposition home health service (06) | DRG 453 ==
LOC: C.ACU 05:53 → C.3E 07:30 → ENRESERV 12:48 → C.MSICU 12-23 12:29 → ENRESERV 12-24 08:24 → C.3E 12-24 09:16
PROVIDERS: ADMIT Orthopaedic Surgery Orthopaedic Surgery of the Spine; ATTEND Orthopaedic Surgery Orthopaedic Surgery of the Spine
PROC: 0RG20A0 Fusion of 2 or more Cervical Vertebral Joints with Interbody Fusion Device, Anterior Approach, Anterior Column, Open Approach (ICD-10-PCS; principal; 2016-12-20 07:45)
PROC: 0RT30ZZ Resection of Cervical Vertebral Disc, Open Approach (ICD-10-PCS; principal; 2016-12-20 07:45)
PROC: 3E0V0GB Introduction of Recombinant Bone Morphogenetic Protein into Bones, Open Approach (ICD-10-PCS; 2016-12-23)
PROC: [UNRECOGNIZED PROCEDURE] (2016-12-23)
DX: M48.02 Spinal stenosis, cervical region (principal); J96.01 Acute respiratory failure with hypoxia; J44.1 Chronic obstructive pulmonary disease with (acute) exacerbation; Z68.41 Body mass index [BMI] 40.0-44.9, adult; E66.9 Obesity, unspecified; M47.22 Other spondylosis with radiculopathy, cervical region; R73.03 Prediabetes; I10 Essential (primary) hypertension; F17.210 Nicotine dependence, cigarettes, uncomplicated; Z79.82 Long term (current) use of aspirin; Z79.899 Other long term (current) drug therapy